=== PATIENT | female | born 1995 | race Caucasian/White ===

== ENCOUNTER → 2016-12-26 12:54 | Outpatient (CLI) | payer MEDICAID ==
[2015-01-30 02:49] VITALS: BMI 34.0
[~2016-12-26 12:54] MED LIST: ACETAMINOPHEN325 MG PO; CLEOCIN PO; COLACE100 MG PO; DEPO-PROVER150 MG/ML IM; DOXYCYCLINE HY100 M2 PO; IBUPROFEN600 MG PO; LEVAQUIN500 MG PO; PERCOCET 10/3251 TA1 PO; PERCOCET 5-3251 TAB PO; ZOLOFT25 MG PO
== END | disposition home or self-care (01) ==
LOC: D.LDO 12:54
DX: O24.419 Gestational diabetes mellitus in pregnancy, unspecified control (principal)

== ENCOUNTER → 2016-12-29 12:02 | Outpatient (CLI) | payer MEDICAID ==
[2015-01-30 02:49] VITALS: BMI 34.0
[2016-12-29 13:23] LABS: BASOPHILS 0.1 % (0-2); EOSINOPHILS 0.7 % (0-7); HEMATOCRIT 36.6 % (36.0-48.0); HEMOGLOBIN 12.3 g/dL (12-16); IMMATURE GRANULOCYTES 1.1 % (0-5); LYMPHOCYTES 19.6 % (15-50); MCH 31.7 pg (26.0-34.0); MCHC 33.6 g/dL (31.0-37.0); MCV 94.3 fL (80.0-100.0); MEAN PLATELET VOLUME 9.8 fL (7.4-10.4); MONOCYTES 12.2 % (2-11); NEUTROPHILS 66.3 % (40-80); PLATELET COUNT 166 10x3/uL (130-400); RBC 3.88 10x6/uL (4.00-5.40); RDW 14.5 % (11.5-14.5); WBC 7.3 10x3/uL (4.8-10.8)
== END | disposition home or self-care (01) ==
LOC: D.LDO 12:02
PROVIDERS: Obstetrics & Gynecology
DX: O24.419 Gestational diabetes mellitus in pregnancy, unspecified control (principal)

== ENCOUNTER → 2016-12-31 12:53 | Outpatient (CLI) | payer MEDICAID ==
[2015-01-30 02:49] VITALS: BMI 34.0
== END | disposition home or self-care (01) ==
LOC: D.LDO 12:53
DX: O24.913 Unspecified diabetes mellitus in pregnancy, third trimester (principal); Z3A.35 35 weeks gestation of pregnancy

== ENCOUNTER → 2017-01-03 10:22 | Outpatient (CLI) | payer MEDICAID ==
[2015-01-30 02:49] VITALS: BMI 34.0
== END | disposition home or self-care (01) ==
LOC: D.LDO 10:22
DX: O24.913 Unspecified diabetes mellitus in pregnancy, third trimester (principal); Z3A.35 35 weeks gestation of pregnancy

== ENCOUNTER → 2017-01-08 11:13 | Outpatient (CLI) | payer MEDICAID ==
[2015-01-30 02:49] VITALS: BMI 34.0
== END | disposition home or self-care (01) ==
LOC: D.LDO 11:13
DX: O26.93 Pregnancy related conditions, unspecified, third trimester (principal); Z3A.36 36 weeks gestation of pregnancy

== ENCOUNTER → 2017-01-11 11:55 | Outpatient (CLI) | payer MEDICAID ==
[2015-01-30 02:49] VITALS: BMI 34.0
== END | disposition home or self-care (01) ==
LOC: D.LDO 11:55
DX: O24.419 Gestational diabetes mellitus in pregnancy, unspecified control (principal); Z3A.36 36 weeks gestation of pregnancy

== ENCOUNTER → 2017-01-15 11:03 | Outpatient (CLI) | payer MEDICAID ==
[2015-01-30 02:49] VITALS: BMI 34.0
== END | disposition home or self-care (01) ==
LOC: D.LDO 11:03
DX: O24.419 Gestational diabetes mellitus in pregnancy, unspecified control (principal); Z3A.37 37 weeks gestation of pregnancy

== ENCOUNTER → 2017-01-18 12:00 | Outpatient (CLI) | payer MEDICAID ==
[2015-01-30 02:49] VITALS: BMI 34.0
== END | disposition home or self-care (01) ==
LOC: D.LDO 12:00
DX: O24.419 Gestational diabetes mellitus in pregnancy, unspecified control (principal); Z3A.37 37 weeks gestation of pregnancy

== ENCOUNTER → 2017-01-22 10:50 | Outpatient (CLI) | payer MEDICAID ==
[2015-01-30 02:49] VITALS: BMI 34.0
== END | disposition home or self-care (01) ==
LOC: D.LDO 10:50
DX: O24.913 Unspecified diabetes mellitus in pregnancy, third trimester (principal); Z3A.38 38 weeks gestation of pregnancy

== ENCOUNTER → 2017-01-25 11:11 | Outpatient (CLI) | payer MEDICAID ==
[2015-01-30 02:49] VITALS: BMI 34.0
== END | disposition home or self-care (01) ==
LOC: D.LDO 11:11
DX: O24.913 Unspecified diabetes mellitus in pregnancy, third trimester (principal); Z3A.38 38 weeks gestation of pregnancy

== ENCOUNTER → 2017-01-28 09:33 | Outpatient (CLI) | payer MEDICAID ==
[2015-01-30 02:49] VITALS: BMI 34.0
== END | disposition home or self-care (01) ==
LOC: D.LDO 09:33
DX: O24.913 Unspecified diabetes mellitus in pregnancy, third trimester (principal); Z3A.39 39 weeks gestation of pregnancy

== ENCOUNTER 2017-01-30 04:52 | Inpatient (IN) | payer MEDICAID ==
[~2017-01-30] VITALS: Ht 162.6 cm; Wt 122.9 kg
--- NOTE | ~2017-01-30 | OP ---
PATIENT NAME: DEB NARAYANAN MEDICAL RECORD: [id number] :94 LOCATION:[id number] ADMISSION DATE:01/30/17 SURGEON: CHARLES WOO MD DATE OF OPERATION: 01/31/2017 PREOPERATIVE DIAGNOSES: 1. Term intrauterine at 39 weeks and 5 days. 2. A2 gestational diabetes. 3. Failed induction of labor. POSTOPERATIVE DIAGNOSES: 1. Term intrauterine at 39 weeks and 5 days. 2. A2 gestational diabetes. 3. Failed induction of labor. PROCEDURE: A primary low transverse section. SURGEON: Charles Woo MD ANESTHESIA: Via spinal. INTRAVENOUS FLUIDS: Per anesthesia record. ESTIMATED BLOOD LOSS: 1000 cc. SPECIMENS: Placenta and cord for gases. FINDINGS: 1. Viable male infant, Apgars 9 at one and 9 at five. 2. Placenta delivered manually intact, 3-vessel cord noted. 3. Grossly normal adnexa bilaterally. 4. A small 1-2 cm posterior lower uterine segment fibroid. SPECIMENS: Placenta and cord for gases. COMPLICATIONS: None apparent. DESCRIPTION OF PROCEDURE: The patient was taken to the operating room where regional anesthesia was achieved without difficulty. The patient was then prepped and draped in normal sterile fashion in the dorsal supine position. SCDs were on and functioning normally. A Johnson catheter had been placed and was draining freely. At this point, a Pfannenstiel skin incision was made, extended downward to the underlying subcutaneous fat to level of the fascia, which was then excised in the midline with a scalpel and excised bilaterally using the Walsh scissors. The superior and inferior aspects of the fascial incision were then grasped with Kelly clamps times 2, tented upward, and sharply dissected from the underlying rectus muscle using the Walsh scissors and the Bovie cautery. Several large rectus veins were cauterized using the Bovie cautery. At this point, the rectus muscles were bluntly in the midline, the pyramidalis muscle bluntly. Several large veins in the peritoneal sac were isolated and cauterized. The peritoneum was entered sharply at the superior aspect of the incision with the Metzenbaum scissors. The peritoneal incision was stretched and then further dissected bilaterally using the Bovie cautery. A bladder blade was then placed into the pelvis. A bladder flap was made by transecting the anterior portion of the lower uterine segment, broad ligament, OPERATIVE REPORT [id number] DEB NARAYANAN which was then carefully dissected downward. The bladder blade was then replaced over the bladder flap and the uterine incision was made. It was extended superiorly and inferiorly using the Pelosi method. At this point, the infant's head was found to be extended. A Kiwi vacuum was then placed on the left lateral occiput to correct the head flexion resulting in delivery of the vertex. At this point, the vacuum was removed. The body was then delivered atraumatically. Infant was bulb suctioned upon delivery. Cord was clamped times 2, cut, and the was handed to the awaiting nursery team. Cord was obtained for gases, placenta was then removed manually intact. A 3-vessel cord was noted. The uterus was exteriorized, cleared of all clots and debris using a sterile sponge. At this point, the lateral aspects of the uterine incision were grasped with ring forceps times 2. The bladder was clearly identified and the uterine incision was repaired with 0 Vicryl in a running locked fashion times 2 with good hemostasis noted. Two small areas of bleeding at suture sites were oversewn with 2-0 Vicryl and good hemostasis was noted. At this point, the posterior cul-de-sac was thoroughly irrigated and the uterus was replaced into the pelvis. Counts were correct times 2. The fascia was then repaired with 0 loop PDS times 1 and the skin repaired with kenyon. The patient tolerated the procedure well, transferred to postanesthesia recovery stable without incident. TRANSINT:[id number] Voice Confirmation ID: [id number] DOCUMENT ID: [id number] CHARLES WOO MD CC: [id number] DICTATION DATE: 01/31/17 1009 FIELD SUPPORT SPECIALIST: 01/31/17 1109 ADM IN [address] [place] [address]
[2017-01-30] MEDS ORDERED: GLYBURIDE5 M1 (05:06)
[2017-01-30 05:14] VITALS: BP 134/80; Ht 162.6 cm; Wt 122.9 kg
[2017-01-30 05:48] LABS: HEMATOCRIT 38.1 % (36.0-48.0); HEMOGLOBIN 12.9 g/dL (12-16); MCH 31.1 pg (26.0-34.0); MCHC 33.9 g/dL (31.0-37.0); MCV 91.8 fL (80.0-100.0); MEAN PLATELET VOLUME 9.3 fL (7.4-10.4); RBC 4.15 10x6/uL (4.00-5.40); RDW 14.7 % (11.5-14.5); WBC 9.1 10x3/uL (4.8-10.8)
[2017-01-30 05:59] LABS: APPEARANCE HAZY (CLEAR); BILIRUBIN NEGATIVE (NEGATIVE); COLOR YELLOW (YELLOW); GLUCOSE 100 mg/dL (NEGATIVE); KETONE NEGATIVE (NEGATIVE); LEUKOCYTE ESTERASE 1+ (NEGATIVE); NITRITE NEGATIVE (NEGATIVE); PROTEIN TRACE mg/dL (NEGATIVE); UROBILINOGEN NORMAL (NORMAL)
[2017-01-30 06:00] LABS: BACTERIA MANY /hpf (NONE SEEN); CALCIUM OXALATE CRYSTALS 0-5 /hpf (NONE SEEN); RED CELLS - URINE 0-5 /hpf (0-5); WHITE CELLS - URINE 0-5 /hpf (0-5)
[2017-01-31] VITALS (10 sets, daily range): BP systolic 109–128; BP diastolic 56–80
[2017-01-31 07:25] LABS: RAPID PLASMA REAGIN Non Reactive (Non Reactive)
--- NOTE | 2017-01-31 08:11 | NUR ---
BABY BORN AT 0759. 8LBS 13OZ, 20CM
--- NOTE | 2017-01-31 08:58 | NUR ---
FUNDUS SLIGHTLY TO THE LEFT, AT UMBILLICUS. FIRM. MODERATE LOCHIA
--- NOTE | 2017-01-31 09:15 | NUR ---
TO ROOM 1273 VIA BED FROM RR. AWAKE AND ALERT. VERBAL RESPONSES APPRO TO QUESTIONS. MOVES UPPER EXTREMITIES AT WILL. PT STATES LEGS ARE STILL NUMB. STATES THAT HAS SOME CRAMPING AND RATES 4 ON SCALE OF 0-10. IV FLUIDS- NEW BAG OF PITOCIN 20 UNITS IN 1000CC NS HUNG AND INFUSING AT 125CC/HR. APICULTURE TEACHER DILAUDID 0.2 MG Q 10 MIN PRN SETUP PER Lashawn HERNANDEZ RN AND PT INSTRUCTED ON USE. FUNDUS UU/FIRM- MOD RUBRA LOCHIA NOTED ON PADS- PADS CHANGED. ICE CAP TO ABD. SMALL SPOTS OF BLOOD NOTED JUST UNDER ABD DRESSING. MARKED WITH PEN. AGOSTO CATH INTACT WITH 60CC URINE IN BAG- YELLOW. SCD'S PLACED.
--- NOTE | 2017-01-31 09:45 | NUR ---
FUNDUS UU/FIRM WITH MASSAGE. SM TO MOD LOCHIA NOTED ON PAD WITH SMALL CLOT X 1. PT CO CRAMPING FEELING. EXPALINED WILL GIVE TORADOL.
--- NOTE | 2017-01-31 09:55 | NUR ---
pedi in room talking with pt and family.
--- NOTE | 2017-01-31 10:08 | NUR ---
fundus uu/firm. small lochia noted on pad. states that pain is 3-4 after toradol. states feels better.
--- NOTE | 2017-01-31 10:30 | NUR ---
TO ROOM, PT IS LYING WITH BED, WITH HOB ELEVATED TO 30 DEGREES. CONTINUES TO PUSH SIGNAL CIRCUIT DESIGNER BUTTON FOR PAIN CONTROL. PT IS SIPPING ON A COCA COLA, DENIES NAUSEA. FUNDUS FIRM, U/U, SMALL RUBRA LOCHIA, NO CLOTS NOTED. PT STATES "I'M STARTING TO FEEL MY TOES TINGLE A LITTLE AND I CAN MOVE BOTH OF MY FEET". PT CONTINUES TO HAVE SCD'S ON. SR UP X2, CALL LIGHT AND PHONE WITHIN REACH. FAMILY CONTINUES TO BE AT BEDSIDE. NURSERY BRINGS BABY TO ROOM IN CRIB.
--- NOTE | 2017-01-31 11:10 | NUR ---
sitting up in bed talking with visitors. sipping on clear liquids. hob lowered. fundus uu/ mod lochia noted on pad- pads changed- perineal care done. positioned to rt tilt and propped with pillows. incentive loren used.
--- NOTE | 2017-01-31 12:41 | NUR ---
clear liquid diet being served. fundus uu. mod lochia noted on pads. almas care done -pads changed. repositioned to supine. encouraged to deep breath and cough. family at bedside. vs done.new ice cap placed.
--- NOTE | 2017-01-31 13:40 | NUR ---
entered room. family at bedside. position changed to lt side- propped with pillows. almas care done- small lochia noted on pad.pt using feather separator at will.
--- NOTE | 2017-01-31 15:20 | NUR ---
TO PT'S ROOM. NURSERY NURSE IN ROOM HELPING PT WITH . PT DENIES NEEDS AT THIS TIME.
--- NOTE | 2017-01-31 16:00 | NUR ---
TO PT'S ROOM, PT IS SITTING UP IN THE BED, WITH HOB AT 45 DEGREES. PT IS REQUESTING TORADOL. SEE EMAR FOR ALL MEDS ADM BY THIS RN. PT STATES "I AM STILL PUSHING MY BUTTON FOR MY PAIN MEDICINE". HOB LOWERED, ABDOMEN PALPATES SOFT, FUNDUS FIRM, U/U. SCANT RUBRA LOCHIA, NO CLOTS. PERIAREA CLEANSED WITH FOAM CLEANSER, NEW OBEY PAD APPLIED. PT STATES "I CAN FINALLY MOVE BOTH MY FEET AND LEGS". PT DENIES OTHER NEEDS AT THIS TIME. PT ENCOURAGED TO USE INCENTIVE SPIROMETER. SR UP X 2, CALL LIGHT AND PHONE WITHIN REACH. FAMILY AT BEDSIDE.
[2017-01-31 16:04] LABS: BASOPHILS 0 % (0-2); EOSINOPHILS 0.2 % (0-7); HEMATOCRIT 34.9 % (36.0-48.0); HEMOGLOBIN 11.7 g/dL (12-16); IMMATURE GRANULOCYTES 0.5 % (0-5); LYMPHOCYTES 13.1 % (15-50); MCH 30.6 pg (26.0-34.0); MCHC 33.5 g/dL (31.0-37.0); MCV 91.4 fL (80.0-100.0); MEAN PLATELET VOLUME 9.6 fL (7.4-10.4); MONOCYTES 9.7 % (2-11); NEUTROPHILS 76.5 % (40-80); RBC 3.82 10x6/uL (4.00-5.40); RDW 14.5 % (11.5-14.5); WBC 9.7 10x3/uL (4.8-10.8)
[2017-01-31 16:05] LABS: PLATELET COUNT 168 10x3/uL (130-400)
--- NOTE | 2017-01-31 17:04 | NUR ---
clear liq diet served.
--- NOTE | 2017-01-31 18:07 | NUR ---
assisted up in bed- encouraged to changed positions. states has had some nausea but is better after position change. nursery in room with infant. baby to breast.
--- NOTE | 2017-01-31 19:27 | NUR ---
RCVD PT FROM Mayra SALAS RN. PT LYING ON BACK, HOB 30 DEGREES. PT AAOX3 WITH C/O PAIN 4/10 AND IS INCISIONAL PAIN. BREATH SOUNDS CLEAR AND UNLABORED X2. HR-RRR, PPP, BOWEL SOUNDS HYPO X4. EDU PT ON NO SOLID FOODS UNTIL ACTIVE BOWEL SOUNDS OR PASSING GAS. PT VERBALIZED UNDERSTANDING. BLI WITH LARGE WHITE BANDAGE WITH SCANT AMOUNT OF SEROSANGUINOUS DRAINAGE NOTED. SCANT LOCHIA RUBRA NOTED TO PERIPAD. PADS CHANGED AT THIS TIME. AGOSTO CATH DRAINING TO GRAVITY WITH 200ML CLEAR YELLOW URINE IN AGOSTO BAG. PUMPS CLEARED AT THIS TIME. SCD'S ON, CONNECTED TO PUMP AND PUMP FUNCTIONING PROPERLY. PT REQUESTS TO GET UP 12 HRS POST OP AND TO MOVE TO TUB ROOM. [facility] PT WILL CALL FOR 12 HR ORDERS AND TAKE OUT AGOSTO. PT VERBALIZED UNDERSTANDING AND IS AGREEABLE. MEAL TRAY REMOVED FROM ROOM PER PT REQUEST. PT DENIES FURTHER NEEDS AT THIS TIME. WILL CONT. POC. BED LOW, WHEELS LOCKED, CL IN REACH, SIDE RAILS UP X2.
--- NOTE | 2017-01-31 19:53 | NUR ---
CALL PLACED TO DR HERNANDEZ FOR [address] HERNANDEZ PT MAY AMB 12 HRS POST OP IF DESIRED. PT MAY SHOWER WHEN READY.
--- NOTE | 2017-01-31 20:28 | NUR ---
AGOSTO CATH REMOVED WITH CATH TIP INTACT. PT ITALIA WELL. 200 ML DARK YELLOW URINE NOTED IN CATH BAG. ADV PT TO CALL WHEN SHE FEELS THE URGE TO VOID. PT VERBALIZED UNDERSTANDING AND DENIES FURTHER NEEDS.
--- NOTE | 2017-01-31 20:58 | NUR ---
PT REQUESTS AND RECEIVES LANOLIN. INFANT UP IN ARMS BONDING. DENIES FURTHER NEEDS AT THIS TIME.
--- NOTE | 2017-01-31 21:44 | NUR ---
ROUNDS MADE. PT WITH Ary BANSAL RN NBN ASSISTING. FAMILY REMAINS AT BEDSIDE. PT DENIES NEEDS AT THIS TIME.
--- NOTE | 2017-01-31 21:58 | NUR ---
PT'S S.O. TO NURSE DESK REQUESTING A NURSE. THIS RN TO BEDSIDE. PT REPORTS FEELING A 'GUSH' OF BLOOD. MOD LOCHIA RUBRA NOTED ON PERIPAD, GOWN, AND PINK PAD. PT REPORTS NEED TO VOID. PT ASSISTED TO SITTING ON SIDE OF BED WITH NO C/O DIZZINESS OR LIGHT HEADEDNESS. PT ASSISTED TO STANDING AND AMB TO BATHROOM WITH MINIMAL ASSISTANCE. SLOW STEADY GAIT NOTED. PT VOIDED 250 ML BLOOD TINTED URINE IN [facility]. PANTIES, CLEAN GOWN, AND PERIPADS PROVIDED. BEDDING CHANGED, CLEAN CHUCKS AND PADS DOWN. PT BACK TO BED AND DENIES FURTHER NEEDS AT THIS TIME.
--- NOTE | 2017-01-31 22:19 | NUR ---
PT LYING IN BED ON BACK, HOB 30 DEGREES AND ATTEMPTING TO BREAST FEED. FAMILY REMAINS AT BEDSIDE. 30MG TORADOL GIVEN SIVP PER ORDERS. SEE EMAR. PT DENIES FURTHER NEEDS. WILL CONT POC.
--- NOTE | 2017-02-01 00:01 | NUR ---
PAIN REASSESSMENT COMPLETE. PT RATES PAIN 2/10 CURRENTLY AND TOLERABLE. DENIES FURTHER NEEDS AT THIS TIME. WILL CONT. POC.
--- NOTE | 2017-02-01 00:28 | NUR ---
INFANT CRYING AND FUSSING, RN TO BEDSIDE, PT STATES THAT SHE DOESN'T KNOW WHAT IS WRONG WITH . STATES THAT SPOUSE JUST CHANGED INFANT'S DIAPER. INFANT LOOSELY SWADDLED. RN PERFORMED DIAPER CHANGE, AND RESWADDLED AND CALMED. TAKEN TO NBN PER PT REQUEST.
--- NOTE | 2017-02-01 00:37 | NUR ---
RN TO BEDSIDE PT UP TO VOID. VOIDED 300 MLS IN HAT. PT AMBULATORY TO ROOM 1257 FOLLOWING VOID.
--- NOTE | 2017-02-01 00:53 | NUR ---
PERCOCET GIVEN PER REQUEST. PAIN 5/10 INCISIONAL BURNING AND STINGING. ICE WATER GIVEN. DENIES ADDITIONAL NEEDS AT THIS TIME. WILL CONT TO MONITOR AND ASSIST PRN.
[2017-02-01 01:16] VITALS: BP 117/70
--- NOTE | 2017-02-01 01:16 | NUR ---
VSS. FUNDUS FIRM U2 WITH SMALL AMT RUBRA LOCHIA NO CLOTS. PT ORIENTED TO ROOM, CL, BEDRAILS, AND LIGHTING IN ROOM. PT VERBALIZED UNDERSTANDING. BED IN LOW POSITION WITH UPPER SIDE RAILS RAISED X2. CL AND PHONE WITHIN REACH.
--- NOTE | 2017-02-01 02:33 | NUR ---
ROUNDS MADE. PT LYING ON BACK RESTING WITH EYES CLOSED, RESP EVEN & UNLABORED. FOB SLEEPING ON BEDSIDE COUCH. PT LEFT UNDISTURBED.
[2017-02-01 04:34] VITALS: BP 132/80
--- NOTE | 2017-02-01 04:34 | NUR ---
ROUNDS MADE. PT RESTING ON BACK, HOB 30 DEGREES. VSS. PT DROWSY, BUT ANSWERS WHEN SPOKEN TO. WILL CONT TO MONITOR.
--- NOTE | 2017-02-01 05:12 | NUR ---
PT RINGS CL. RN TO BEDSIDE. PT REQUESTS PERCOCET 5/325MG FOR PAIN RATED 6/10. ADV PT TO GET UP TO VOID SINCE IT HAS BEEN 5 HOURS. PT VERBALIZED UNDERSTANDING. WILL RETURN WITH MEDICATION.
--- NOTE | 2017-02-01 05:28 | NUR ---
PT ASSISTED UP OFF TOILET AND BACK TO BED. MINIMAL ASSISTANCE NEEDED. PERCOCET 5/325MG X1 TAB GIVEN FOR INCISIONAL PAIN RATED 6/10. Malorie BANSAL RN NBN TO ROOM WITH INFANT IN OPEN CRIB AT THIS TIME. PT DENIES FURTHER NEEDS.
--- NOTE | 2017-02-01 06:13 | NUR ---
PAIN REASSESSMENT COMPLETE. PT RATES PAIN 4/10 AND TOLERABLE. PT HOB 30 DEGREES AND ATTEMPTING TO FEED INFANT BOTTLE AT THIS TIME. PT REPORTS THAT "HE JUST DOESN'T WANT TO EAT. HE JUST WANTS TO SLEEP." ADV PT TO SIT UP MORE AND HOLD THE BABY OUT AWAY FROM HER IN ORDER TO FEED HIM. PT STATES "IT JUST HURTS MY BELLY." PT THEN HOLDING THE MORE HORIZONTAL. ADV PT ON SITTING INFANT UP TO FEED. PT VERBALIZED UNDERSTANDING. NBN INFORMED OF PT'S DIFFICULTY WITH FEEDING. NBN TO ROOM TO ASSIST AT THIS TIME.
[2017-02-01 07:22] LABS: BASOPHILS 0 % (0-2); EOSINOPHILS 0.7 % (0-7); HEMOGLOBIN 11.4 g/dL (12-16); IMMATURE GRANULOCYTES 0.7 % (0-5); LYMPHOCYTES 11.4 % (15-50); MCH 30.6 pg (26.0-34.0); MCHC 33.5 g/dL (31.0-37.0); MCV 91.4 fL (80.0-100.0); MEAN PLATELET VOLUME 9.4 fL (7.4-10.4); NEUTROPHILS 76.2 % (40-80); PLATELET COUNT 159 10x3/uL (130-400); RBC 3.72 10x6/uL (4.00-5.40); RDW 14.8 % (11.5-14.5); WBC 8.7 10x3/uL (4.8-10.8)
--- NOTE | 2017-02-01 08:00 | NUR ---
ASSUME CARE OF THIS PATIENT. SITTING IN LOW FOWLERS POSITION. IN CRIB, FOB SLEEPING ON COUCH. SHIFT ASSESSMENT COMPLETED. FSBS COMPLETED RESULTED AT 88. DISCUSSED PLAN FOR THE DAY TO INCLUDE OOB, AMBULATION, SHOWER. CURRENTLY BREAST AND BOTTLE FEEDING INFANT. DISCUSSED BOTH WITH PT. ALSO INFORMED PT THAT IS RH POSITIVE STATES "OH, SO I WILL GET THE RHOGAM". INSTRUCTED ON INCISION CARE AND USE OF PERIPAD TO KEEP AREA DRY. INSTRUCTED TO CHANGE FREQUENTLY. DISCUSSED PAIN MANAGEMENT AND RELIEF MEASURES FOR GAS PAIN/CRAMPING. U/3 FIRM RUBRA SCANT. DENIES NEED TO VOID. ENCOURAGED TO TRY TO EAT SMALL AMOUNTS OF BREAKFAST. TO CALL WHEN READY TO AMBULATE AND TAKE SHOWER. CALL LIGHT IN REACH AND SIDE RAILS UP X 2. VERBALIZED UNDERSTANDING.
[2017-02-01 08:02] VITALS: BP 120/76
--- NOTE | 2017-02-01 09:56 | NUR ---
REQUESTED MOTRIN FOR 5/10 CRAMPING. MOTRIN 600 MG GIVEN PO. INSTRUCTED TO LET RN KNOW IF IT DOES NOT HELP. VERBALIZED UNDERSTANDING. FACILITY MANAGER HISTOLOGY IN ROOM ASSISTING WITH . PT SAYS SHE HAS BEEN UP TO THE BATHROOM AND VOIDED WITHOUT DIFFICULTY. SIDE RAILS UP X 2, CALL LIGHT IN REACH.
--- NOTE | 2017-02-01 10:35 | NUR ---
Lupe Simpsonr 02/01/17 LE@ 9:00 S: Patient states is going fine; will get to the breast and sleep. O: Congratulated on delivery, takes time and patience in the beginning. Explained how to hold for feeding, make sure is turned tummy to tummy, nose opposite of nipple, gently support head, and allow to self-latch. In the beginning takes time and patience in the beginning. should feed on demand when showing feeding cues, explained feeding cues. Explained and provided handouts on positions, growth spurs, how to hand express, how to wake a sleeping baby, engorgement, what to expect the first week, feeding cues and explained breastmilk composition. The more is placed to the breast, this will help with establishing your milk supply, supply and demand, what baby takes out, and your body will make more of. Patient states baby should eat again soon. Placed skin to skin with mom to promote . Encouraged to latch infant to the breast every 2-3 hours for feeding, or sooner if needed. Ask for help as needed. Offered to make WIC appointment, client states she will do so a later time. Asked if she had any questions, concerns, or needs, client declined. A: Patient states she is in pain from cut. P: Continue to support exclusively . Ang Simmons, CLC
--- NOTE | 2017-02-01 10:45 | NUR ---
CONFIRMED WITH PATIENT THAT SHE DOES NOT WANT NORCO FOR PAIN CONTROL STAYS IT MAKES ME SICK TO MY STOMACH. DESIRES THE PERCOCET. ALSO PT REQUESTS SALINE LOCK TO BE "TAKEN OUT. IT'S BOTHERING ME".
--- NOTE | 2017-02-01 11:00 | NUR ---
PERCOCET 5 MG GIVEN PO FOR RELIEF OF ABDOMINAL CRAMPING NOT RELIEVED BY MOTRIN. SALINE LOCK DC'D WITH TIP INTACT. TO NURSERY PER REQUEST OF PT. SIDE RAILS UP X 2 CALL LIGHT IN REACH.
--- NOTE | 2017-02-01 13:15 | NUR ---
VISITORS IN ROOM WITH . PT SITTING HIGH FOWLERS. FEELING DROWSY. DESIRES TO WAIT ON AMBULATION. SIDE RAILS UP, CALL LIGHT IN REACH.
--- NOTE | 2017-02-01 14:31 | NUR ---
AROUSED EASILY FROM SLEEP FOR 2 HR PP FSBS. RESULTS 120. REPORTED TO DR HERNANDEZ. PER NO ADDITIONAL TESTING IS NEEDED. DESIRES TO CONTINUE TO REST AT THIS TIME. FAMILY IN ROOM.
--- NOTE | 2017-02-01 16:00 | NUR ---
SITTING UP IN CHAIR WITH IN ARMS. PLANS TO SHOWER SOON. NO REQUESTS AT THIS TIME. FAMILY IN ROOM. TO CALL IF ANYTHING IS NEEDED.
--- NOTE | 2017-02-01 17:00 | NUR ---
SHOWER WAS COMPLETED. SITTING IN CHAIR. NO REQUESTS AT THIS TIME. FAMILY IN ROOM SITTING ON BED. WILL CHANGE LINEN WHEN PT READY TO RETURN TO BED.
--- NOTE | 2017-02-01 17:46 | NUR ---
REQUESTED PAIN MEDICATION FOR 6/10 ABDOMINAL CRAMPING. LAYING IN BED AT THIS TIME. PERCOCET 5 MG GIVEN PO FOR RELIEF. ASSISSTED OUT OF BED TO AMBULATE BEFORE MEDICATION CAUSES DROWSINESS. OOB SLOWLY BUT AMBULATED WELL AROUND SOLOMON WITHOUT DIFFICULTY. RETURNED TO ROOM AFTER AMBULATING AND CURRENTLY SITTING IN CHAIR. LINENS WERE CHANGED AT THIS TIME.
--- NOTE | 2017-02-01 18:30 | NUR ---
LAYING IN BED HOLDING . SAYS SHE IS FEELING BETTER. 3/10 ON PAIN SCALE. SIDE RAILS UP X 2, CALL LIGHT IN REACH. REMINDED PATIENT TO AMBULATE AGAIN THIS EVENING BEFORE BED. VERBALIZED UNDERSTANDING. TO CALL IF ANY REQUESTS.
--- NOTE | 2017-02-01 19:21 | NUR ---
RCVD PT FROM Randell FOX RN. PT LYING IN BED WITH HOB 45 DEGREES ATTEMPTING TO BREASTFEED AT THIS TIME. WILL RETURN TO COMPLETE ASSESSMENT WHEN PT IS FINISHED. PT DENIES PAIN OR NEEDS CURRENTLY.
[2017-02-01 20:23] VITALS: BP 134/89
--- NOTE | 2017-02-01 20:23 | NUR ---
PT FINISHED AT THIS TIME. PT UP TO BATHROOM. STEADY GAIT NOTED. PT VOIDS LARGE AMOUNT IN TOILET. NEW ROLL OF TOILET PAPER PROVIDED PER PT REQUEST. PT AMB BACK TO BED WITHOUT DIFFICULTY FOR ABRASIVE SAWYER. HR-RRR, BREATH SOUNDS CLEAR & UNLABORED X2, PPP. BLI WITH LILY C/D/I WITH PERIPAD COVERING. SCANT SEROSANGUINOUS FLUID NOTED TO PERIPAD. PAD CHANGED AT THIS TIME. SCANT LOCHIA RUBRA NOT ON PERIPAD @ PERINEUM. FUNDUS FIRM, ML, U/U PT REPORTS NO CLOTS WHEN VOIDING. VSS. PT INQUIRES WHEN NEXT PAIN MEDICATION DUE. ADV PT THAT IT WAS CLOSE TO 6 PM WHEN SHE HAD LAST DOSE OF PERCOCET AND IT'S EVERY 4 HRS NEEDED. PT VERBALIZED UNDERSTANDING AND REQUESTS NEXT DOSE BE BROUGHT WHEN AVAILABLE. WILL PLAN TO DO SO. PT DENIES FURTHER NEEDS AT THIS TIME. FAMILY REMAINS AT BEDSIDE VISITING. BED LOW, WHEELS LOCKED, CL IN REACH, SIDE RAILS UP X2.
--- NOTE | 2017-02-01 22:27 | NUR ---
PAIN REASSESSMENT COMPLETE. PT RATES PAIN 4/10 AND TOLERABLE. Ary KENDALL, DRYING TUMBLER OPERATOR TO ROOM TO TAKE INFANT TO NBN. PT UP OUT OF BED PER SELF TO AMB IN VARGAS. PT AMB DOWN TO DOUBLE DOOR ON UNIT AND BACK TO ROOM WITHOUT DIFFICULTY. PT TO BATHROOM TO VOID AND REQUESTS MOTRIN. WILL RETURN WITH SAME.
--- NOTE | 2017-02-01 22:30 | NUR ---
MOTRIN 600MG X1 TAB GIVEN FOR PAIN RATED 5/10 IN ABD DESCRIBED CRAMPING AND INCISIONAL PAIN. PT DENIES FURTHER NEEDS AT THIS TIME. PT PLANS TO REST WHILE IS IN NSY. WILL CONT. TO MONITOR.
--- NOTE | 2017-02-01 23:06 | NUR ---
PAIN REASSESSMENT COMPLETE. PT RATES PAIN 4/10 AND TOLERABLE. NEED FOR RHOGAM DISCUSSED WITH PT. PT VERBALIZED UNDERSTANDING. PT WANTS TO HAVE IT DONE "LATER." PT DENIES NEEDS OR FURTHER C/O AT THIS TIME. WILL CONT. TO MONITOR.
--- NOTE | 2017-02-02 01:30 | NUR ---
pt sitting up in bed . denies pain or needs at this time. will call out for vs assessment and rhogam injection when finished.
[2017-02-02 02:04] VITALS: BP 126/78
--- NOTE | 2017-02-02 02:04 | NUR ---
RHOGAM GIVEN IN RT VENTROGLUTEAL PER ORDERS. SEE EMAR. PERCOCET 5/325MG X1 TAB GIVEN PER PT REQUEST. PT DENIES FURTHER NEEDS AT THIS TIME.
--- NOTE | 2017-02-02 02:47 | NUR ---
PAIN REASSESSMENT COMPLETE. PT RATES PAIN 3/10 AT THIS TIME. INFANT UP IN ARMS BONDING. PT REPORTS FEELING TIRED AND DESIRES TO GO TO SLEEP. PT REQUESTS TO GO TO NBN. INFANT TRANSPORTED VIA OPEN CRIB TO NBN PER THIS RN.
--- NOTE | 2017-02-02 04:29 | NUR ---
PT RESTING EYES CLOSED, RESP EVEN & UNLABORED. FOB SLEEPING ON BEDSIDE COUCH. PT LEFT UNDISTURBED AT THIS TIME.
[2017-02-02 05:02] VITALS: BP 132/85
--- NOTE | 2017-02-02 05:02 | NUR ---
NBN TO ROOM WITH INFANT, PT ASKS THAT INFANT REMAIN IN NBN AND FED BOTTLE. TRANSPORTED BACK TO ROOM VIA OPEN CRIB PER Ary KENDALL LPN. VS ASSESSED AT THIS TIME. PT DENIES PAIN OR NEEDS.
--- NOTE | 2017-02-02 06:05 | NUR ---
PT RESTING ON BACK SNORING LOUDLY. EYES CLOSED. PT LEFT UNDISTURBED.
[2017-02-02 07:30] VITALS: BP 119/76
--- NOTE | 2017-02-02 07:30 | NUR ---
ASSUME CARE OF THIS PATIENT. SHIFT ASSESSMENT COMPLETED. INFANT IN ROOM IN CRIB AND FOB SLEEPING ON COUCH. / CRAMPING BUT DECLINES PAIN MEDICATION STATES "I WILL LET YOU KNOW IF I NEED ANYTHING." HAS BEEN BREAST AND BOTTLEFEEDING. ASKED ABOUT GOING HOME TODAY. NO REQUESTS. REG DIET AT BEDSIDE. PLANS TO GET OOB TO BR BEFORE EATING. CALL LIGHT IN REACH. TO CALL IF ANYTHING IS NEEDED. VERBALIZED UNDERSTANDING.
--- NOTE | 2017-02-02 09:20 | NUR ---
SITTING UP IN BED . FOB IN CHAIR AT BEDSIDE. NO REQUESTS.
--- NOTE | 2017-02-02 10:15 | NUR ---
AMBULATED FROM BATHROOM. REQUESTED PAIN MED FOR 6/10 CRAMPING. PERCOCET 5 MG GIVEN PO FOR RELIEF. ASSISTED WITH CHANGE OF PAD OVER INCISION. PLANS TO AMBULATE AROUND PP SOLOMON BEFORE SHE FEEL DROWSY FROM PERCOCET. VERBAL AND WRITTEN INFORMATION GIVEN ON TDAP VACCINE. CURRENTLY CONSIDERING.
--- NOTE | 2017-02-02 10:32 | NUR ---
C/O CRAMP BEHIND LEFT KNEE. ONSET TODAY STATES "I THINK IT WAS HOW I WAS SLEEPING". FEELS BETTER WHEN WALKING. SKIN WARM AND DRY BILATERALLY, TRACE EDEMA BILATERALLY, NEG HOMANS BILATERALLY. AMBULATED AROUND [place] AND BACK TO ROOM SAYS THAT WALKING MADE IF FEEL A LITTLE BETTER. RETURNED TO BED. SIDE RAILS UP X 2, CALL LIGHT IN REACH. FOB IN ROOM WITH INFANT IN ARMS.
--- NOTE | 2017-02-02 11:00 | NUR ---
CALLED TO ROOM BY PT. SAYS SHE FEELS LIKE CRAMPING PAIN IS GETTING WORSE BEHIND RIGHT KNEE. DR HERNANDEZ WAS NOTIFIED. NEW ORDERS RECEIVED. RADIOLOGY NOTIFIED OF ORDER FOR ROSALINDA VENOUS DOPPLER DOPPLER.
--- NOTE | 2017-02-02 11:06 | NUR ---
TO ROOM TO LET PT KNOW THE PLAN. WALKING AROUND ROOM AT THIS TIME STATES "IT FEELS BETTER WHEN I WALK".
--- NOTE | 2017-02-02 11:19 | NUR ---
WAD IMPREGNATOR HERE. PT SAYS ABDOMINAL CRAMPING IS NOW 3. SAYS LEG PAIN-CRAMP IS 1-2 WHEN WALKING AND ABOUT A 4 WHEN SITTING OR IN BED.
--- NOTE | 2017-02-02 11:40 | NUR ---
DR HERNANDEZ VISITED. DOPPLER US NEGATIVE PER TECH- DR HERNANDEZ NOTIFIED.
--- NOTE | 2017-02-02 12:13 | NUR ---
SITTING UP IN BED EATING LUNCH. DESIRES TO WAIT ON TDAP VACCINATION. STATES "I CAN GET IT WHEN I GET MY WIC". DC ORDERS RECEIVED FROM DR HERNANDEZ.
--- NOTE | 2017-02-02 14:36 | NUR ---
REQUESTED MOTRIN FOR 5-6/10 ABD CRAMPING. MOTRIN 600 MG GIVEN PO. DC INSTRUCTIONS STARTED TO INCLUDE /POST-OP CARE, CARE OF INCISION, S&S INFECTION, PP DEPRESSION, MEDICATION ADMINISTRATION, AND F/U APPOINTMENT. VERBALIZED UNDERSTANDING. GETTING READY TO GET UP TO SHOWER. TO CALL WHEN FINISHED AND READY TO GO HOME.
--- NOTE | 2017-02-02 16:38 | NUR ---
discharge instructions- prepared per yordy cox rn given to pt with explaination- pt denies questions. see acknowledgement forms. pt refuses t-dap vaccine. prescriptions x2 given along with drug data info. pt denies questions.
--- NOTE | 2017-02-02 16:40 | NUR ---
pfw discharge inst given - post op discharge inst given. pt health summary given. pt denies questions.
--- NOTE | 2017-02-02 16:51 | NUR ---
discharged home with and family. to auto via w/c.
== END 2017-02-02 16:45 | disposition home or self-care (01) | DRG 766 ==
LOC: D.LD 04:52
PROVIDERS: ADMIT Obstetrics & Gynecology
PROC: 3E033VJ Introduction of Other Hormone into Peripheral Vein, Percutaneous Approach (ICD-10-PCS; 2017-01-31)
PROC: 10D00Z1 Extraction of Products of Conception, Low, Open Approach (ICD-10-PCS; principal; 2017-01-31 07:30)
DX: O24.429 Gestational diabetes mellitus in childbirth, unspecified control (principal); Z3A.39 39 weeks gestation of pregnancy; Z37.0 Single live birth; O61.0 Failed medical induction of labor; O99.824 Streptococcus B carrier state complicating childbirth; O26.893 Other specified pregnancy related conditions, third trimester; Z67.91 Unspecified blood type, Rh negative

== ENCOUNTER → 2018-10-24 12:35 | Outpatient (CLI) | payer MEDICAID ==
[~2018-10-24 12:35] MED LIST changes: +BUSPAR5 MG PO; +GLYBURIDE5 M1; +PERCOCET 10-321 EAC1 PO
[2018-10-24 13:55] LABS: APPEARANCE HAZY (CLEAR); BACTERIA MANY /hpf (NONE SEEN); BILIRUBIN NEGATIVE (NEGATIVE); COLOR YELLOW (YELLOW); EPITHELIAL CELLS 0-5 /hpf (0-5); GLUCOSE 100 mg/dL (NEGATIVE); KETONE NEGATIVE (NEGATIVE); NITRITE NEGATIVE (NEGATIVE); PROTEIN NEGATIVE (NEGATIVE); UROBILINOGEN NORMAL (NORMAL)
[2018-10-24 13:56] LABS: MUCUS <1+ /lpf (NONE SEEN); RED CELLS - URINE OCC /hpf (0-5); WHITE CELLS - URINE OCC /hpf (0-5)
[2018-10-24 14:28] LABS: BASOPHILS 0.2 % (0-2); EOSINOPHILS 2.5 % (0-7); HEMOGLOBIN 12.4 g/dL (12-16); IMMATURE GRANULOCYTES 1.1 % (0-5); LYMPHOCYTES 22.1 % (15-50); MCH 31.7 pg (26.0-34.0); MCHC 34.4 g/dL (31.0-37.0); MCV 92.1 fL (80.0-100.0); MEAN PLATELET VOLUME 8.9 fL (7.4-10.4); MONOCYTES 9.2 % (2-11); NEUTROPHILS 64.9 % (40-80); RBC 3.91 10x6/uL (4.00-5.40); RDW 13.9 % (11.5-14.5); WBC 6.5 10x3/uL (4.8-10.8)
[2018-10-24 14:41] LABS: PLATELET COUNT 209 10x3/uL (130-400)
== END | disposition home or self-care (01) ==
LOC: D.LDO 12:35
PROVIDERS: Obstetrics & Gynecology
DX: O26.892 Other specified pregnancy related conditions, second trimester (principal); Z3A.22 22 weeks gestation of pregnancy; R10.2 Pelvic and perineal pain

== ENCOUNTER 2018-11-11 16:26 | Outpatient (CLI) | payer MEDICAID ==
[2017-01-30 05:14] VITALS: BMI 46.6
[~2018-11-11 16:26] MED LIST changes: -BUSPAR5 MG PO; -PERCOCET 10-321 EAC1 PO
[2018-11-11 17:52] LABS: BASOPHILS 0.1 % (0-2); EOSINOPHILS 1.4 % (0-7); HEMATOCRIT 35.6 % (36.0-48.0); HEMOGLOBIN 12.1 g/dL (12-16); IMMATURE GRANULOCYTES 1.6 % (0-5); LYMPHOCYTES 14.9 % (15-50); MCH 31.2 pg (26.0-34.0); MCV 91.8 fL (80.0-100.0); MEAN PLATELET VOLUME 9.1 fL (7.4-10.4); MONOCYTES 11.1 % (2-11); NEUTROPHILS 70.9 % (40-80); PLATELET COUNT 204 10x3/uL (130-400); RBC 3.88 10x6/uL (4.00-5.40); RDW 13.7 % (11.5-14.5)
[2018-11-11 18:02] LABS: ALBUMIN 2.9 g/dL (3.4-5.0); ALKALINE PHOSPHATASE 39 U/L (46-116); ALT (SGPT) 17 U/L (10-68); BILIRUBIN - TOTAL 0.18 mg/dL (0.2-1.3); CALC OSMOLALITY 276 mosm/kg (275-300); CARBON DIOXIDE 23.6 mmol/L (21.0-32.0); CHLORIDE - SERUM 106 mmol/L (98-107); CREATININE - SERUM 0.5 mg/dL (0.6-1.3); GLUCOSE 78 mg/dL (74-106); POTASSIUM - SERUM 3.7 mmol/L (3.5-5.1); PROTEIN - SERUM 6.8 g/dL (6.4-8.2); SODIUM 140 mmol/L (136-145); UREA NITROGEN 9 mg/dL (7-18); eGFR NON AFRICAN AMERICAN > 90 mL/min (90-120)
[2018-11-11 18:14] LABS: BILIRUBIN - INDIRECT 0.16 mg/dL (0.00-1.00); URIC ACID 3.2 mg/dL (2.6-7.2)
[2018-11-11 18:23] LABS: BILIRUBIN - DIRECT 0.02 mg/dL (0.00-0.30)
[2018-11-12 21:29] LABS: PROTEIN - URINE 0.8 mg/dL (0.0-11.9)
== END 2018-11-11 19:38 ==
LOC: D.LDO 16:26
PROVIDERS: ATTEND Obstetrics & Gynecology
DX: O13.2 Gestational [pregnancy-induced] hypertension without significant proteinuria, second trimester (principal); Z3A.24 24 weeks gestation of pregnancy

== ENCOUNTER → 2018-11-14 19:37 | Outpatient (CLI) | payer MEDICAID ==
[2017-01-30 05:14] VITALS: BMI 46.6
== END | disposition home or self-care (01) ==
LOC: D.LDO 19:37
PROVIDERS: ATTEND Obstetrics & Gynecology
DX: O16.2 Unspecified maternal hypertension, second trimester (principal); Z3A.25 25 weeks gestation of pregnancy

== ENCOUNTER → 2018-12-23 11:49 | Outpatient (CLI) | payer MEDICAID ==
[2017-01-30 05:14] VITALS: BMI 46.6
[~2018-12-23 11:49] MED LIST changes: +BUSPAR5 MG PO
[2018-12-23 12:56] LABS: BASOPHILS 0.2 % (0-2); EOSINOPHILS 1.2 % (0-7); HEMATOCRIT 33.2 % (36.0-48.0); HEMOGLOBIN 11.5 g/dL (12-16); IMMATURE GRANULOCYTES 1.7 % (0-5); LYMPHOCYTES 18.9 % (15-50); MCH 31.4 pg (26.0-34.0); MCHC 34.6 g/dL (31.0-37.0); MCV 90.7 fL (80.0-100.0); MEAN PLATELET VOLUME 9.2 fL (7.4-10.4); MONOCYTES 10.7 % (2-11); NEUTROPHILS 67.3 % (40-80); PLATELET COUNT 187 10x3/uL (130-400); RBC 3.66 10x6/uL (4.00-5.40); RDW 13.9 % (11.5-14.5); WBC 5.8 10x3/uL (4.8-10.8)
[2018-12-23 13:09] LABS: ALBUMIN 2.8 g/dL (3.4-5.0); ALKALINE PHOSPHATASE 63 U/L (46-116); ALT (SGPT) 21 U/L (10-68); BILIRUBIN - DIRECT 0.08 mg/dL (0.00-0.30); BILIRUBIN - INDIRECT 0.17 mg/dL (0.00-1.00); BILIRUBIN - TOTAL 0.25 mg/dL (0.2-1.3); CALC OSMOLALITY 274 mosm/kg (275-300); CALCIUM 8.9 mg/dL (8.5-10.1); CARBON DIOXIDE 23.5 mmol/L (21.0-32.0); CHLORIDE - SERUM 106 mmol/L (98-107); CREATININE - SERUM 0.5 mg/dL (0.6-1.3); POTASSIUM - SERUM 3.5 mmol/L (3.5-5.1); PROTEIN - SERUM 6.7 g/dL (6.4-8.2); SODIUM 140 mmol/L (136-145); UREA NITROGEN 7 mg/dL (7-18); URIC ACID 4.2 mg/dL (2.6-7.2); eGFR NON AFRICAN AMERICAN > 90 mL/min (90-120)
[2018-12-23 13:10] LABS: GLUCOSE 70 mg/dL (74-106)
== END | disposition home or self-care (01) ==
LOC: D.LDO 11:49
PROVIDERS: Obstetrics & Gynecology; ATTEND Obstetrics & Gynecology
DX: O24.913 Unspecified diabetes mellitus in pregnancy, third trimester (principal); Z3A.30 30 weeks gestation of pregnancy

== ENCOUNTER → 2018-12-26 12:05 | Outpatient (CLI) | payer MEDICAID ==
[2017-01-30 05:14] VITALS: BMI 46.6
== END | disposition home or self-care (01) ==
LOC: D.LDO 12:05
PROVIDERS: ATTEND Obstetrics & Gynecology
DX: O26.899 Other specified pregnancy related conditions, unspecified trimester (principal)

== ENCOUNTER → 2018-12-30 11:09 | Outpatient (CLI) | payer MEDICAID ==
[2017-01-30 05:14] VITALS: BMI 46.6
[2018-12-30 12:41] LABS: BASOPHILS 0.2 % (0-2); EOSINOPHILS 1.4 % (0-7); HEMATOCRIT 34.5 % (36.0-48.0); HEMOGLOBIN 11.6 g/dL (12-16); IMMATURE GRANULOCYTES 1.1 % (0-5); LYMPHOCYTES 22.4 % (15-50); MCH 31.3 pg (26.0-34.0); MCHC 33.6 g/dL (31.0-37.0); MEAN PLATELET VOLUME 9.2 fL (7.4-10.4); MONOCYTES 7.8 % (2-11); NEUTROPHILS 67.1 % (40-80); PLATELET COUNT 161 10x3/uL (130-400); RBC 3.71 10x6/uL (4.00-5.40); RDW 14.6 % (11.5-14.5); WBC 5.7 10x3/uL (4.8-10.8)
[2018-12-30 12:50] LABS: ALBUMIN 2.9 g/dL (3.4-5.0); ALKALINE PHOSPHATASE 68 U/L (46-116); ALT (SGPT) 30 U/L (10-68); BILIRUBIN - DIRECT 0.06 mg/dL (0.00-0.30); BILIRUBIN - INDIRECT 0.22 mg/dL (0.00-1.00); BILIRUBIN - TOTAL 0.28 mg/dL (0.2-1.3); CALC OSMOLALITY 275 mosm/kg (275-300); CALCIUM 8.5 mg/dL (8.5-10.1); CARBON DIOXIDE 20.8 mmol/L (21.0-32.0); CHLORIDE - SERUM 106 mmol/L (98-107); CREATININE - SERUM 0.5 mg/dL (0.6-1.3); GLUCOSE 76 mg/dL (74-106); POTASSIUM - SERUM 3.5 mmol/L (3.5-5.1); PROTEIN - SERUM 6.5 g/dL (6.4-8.2); SODIUM 140 mmol/L (136-145); UREA NITROGEN 6 mg/dL (7-18); URIC ACID 4.1 mg/dL (2.6-7.2); eGFR NON AFRICAN AMERICAN > 90 mL/min (90-120)
== END | disposition home or self-care (01) ==
LOC: D.LDO 11:09
PROVIDERS: ATTEND Obstetrics & Gynecology
DX: O24.419 Gestational diabetes mellitus in pregnancy, unspecified control (principal); O16.3 Unspecified maternal hypertension, third trimester; Z3A.31 31 weeks gestation of pregnancy

== ENCOUNTER → 2019-01-02 18:12 | Outpatient (CLI) | payer MEDICAID ==
[2017-01-30 05:14] VITALS: BMI 46.6
== END | disposition home or self-care (01) ==
LOC: D.LDO 18:12
PROVIDERS: ATTEND Obstetrics & Gynecology
DX: O24.419 Gestational diabetes mellitus in pregnancy, unspecified control (principal); Z3A.32 32 weeks gestation of pregnancy

== ENCOUNTER → 2019-01-07 10:16 | Outpatient (CLI) | payer MEDICAID ==
[2017-01-30 05:14] VITALS: BMI 46.6
[2019-01-07 12:16] LABS: BASOPHILS 0.1 % (0-2); HEMATOCRIT 33.8 % (36.0-48.0); HEMOGLOBIN 11.6 g/dL (12-16); IMMATURE GRANULOCYTES 0.6 % (0-5); MCH 31.4 pg (26.0-34.0); MCHC 34.3 g/dL (31.0-37.0); MCV 91.6 fL (80.0-100.0); MONOCYTES 10.6 % (2-11); NEUTROPHILS 71.7 % (40-80); PLATELET COUNT 181 10x3/uL (130-400); RBC 3.69 10x6/uL (4.00-5.40); RDW 14.5 % (11.5-14.5); WBC 7.2 10x3/uL (4.8-10.8)
[2019-01-07 12:30] LABS: ALBUMIN 2.8 g/dL (3.4-5.0); ALKALINE PHOSPHATASE 68 U/L (46-116); ALT (SGPT) 19 U/L (10-68); BILIRUBIN - DIRECT 0.05 mg/dL (0.00-0.30); BILIRUBIN - INDIRECT 0.17 mg/dL (0.00-1.00); BILIRUBIN - TOTAL 0.22 mg/dL (0.2-1.3); CALC OSMOLALITY 274 mosm/kg (275-300); CALCIUM 8.3 mg/dL (8.5-10.1); CARBON DIOXIDE 22.8 mmol/L (21.0-32.0); CHLORIDE - SERUM 106 mmol/L (98-107); CREATININE - SERUM 0.4 mg/dL (0.6-1.3); GLUCOSE 77 mg/dL (74-106); POTASSIUM - SERUM 3.5 mmol/L (3.5-5.1); PROTEIN - SERUM 6.7 g/dL (6.4-8.2); SODIUM 139 mmol/L (136-145); UREA NITROGEN 6 mg/dL (7-18); URIC ACID 4.2 mg/dL (2.6-7.2); eGFR NON AFRICAN AMERICAN > 90 mL/min (90-120)
== END | disposition home or self-care (01) ==
LOC: D.LDO 10:16
PROVIDERS: ATTEND Obstetrics & Gynecology
DX: O26.893 Other specified pregnancy related conditions, third trimester (principal); Z3A.32 32 weeks gestation of pregnancy

== ENCOUNTER → 2019-01-10 10:34 | Outpatient (CLI) | payer MEDICAID ==
[2017-01-30 05:14] VITALS: BMI 46.6
== END | disposition home or self-care (01) ==
LOC: D.LDO 10:34
PROVIDERS: ATTEND Obstetrics & Gynecology
DX: O13.3 Gestational [pregnancy-induced] hypertension without significant proteinuria, third trimester (principal); O24.913 Unspecified diabetes mellitus in pregnancy, third trimester; Z3A.33 33 weeks gestation of pregnancy

== ENCOUNTER → 2019-01-15 09:43 | Outpatient (CLI) | payer MEDICAID ==
[2017-01-30 05:14] VITALS: BMI 46.6
[2019-01-15 10:14] LABS: BASOPHILS 0.2 % (0-2); HEMATOCRIT 34.2 % (36.0-48.0); HEMOGLOBIN 11.8 g/dL (12-16); IMMATURE GRANULOCYTES 0.8 % (0-5); LYMPHOCYTES 18.4 % (15-50); MCH 31.1 pg (26.0-34.0); MCHC 34.5 g/dL (31.0-37.0); MCV 90.2 fL (80.0-100.0); MEAN PLATELET VOLUME 9.1 fL (7.4-10.4); MONOCYTES 10.4 % (2-11); NEUTROPHILS 68.2 % (40-80); PLATELET COUNT 162 10x3/uL (130-400); RBC 3.79 10x6/uL (4.00-5.40); RDW 14.4 % (11.5-14.5); WBC 5.9 10x3/uL (4.8-10.8)
[2019-01-15 10:18] LABS: ALBUMIN 2.7 g/dL (3.4-5.0); ALKALINE PHOSPHATASE 79 U/L (46-116); ALT (SGPT) 12 U/L (10-68); BILIRUBIN - DIRECT 0.05 mg/dL (0.00-0.30); BILIRUBIN - TOTAL 0.25 mg/dL (0.2-1.3); CALC OSMOLALITY 272 mosm/kg (275-300); CALCIUM 8.3 mg/dL (8.5-10.1); CARBON DIOXIDE 23.6 mmol/L (21.0-32.0); CHLORIDE - SERUM 105 mmol/L (98-107); CREATININE - SERUM 0.5 mg/dL (0.6-1.3); GLUCOSE 85 mg/dL (74-106); POTASSIUM - SERUM 3.6 mmol/L (3.5-5.1); PROTEIN - SERUM 6.8 g/dL (6.4-8.2); SODIUM 138 mmol/L (136-145); UREA NITROGEN 7 mg/dL (7-18); URIC ACID 3.9 mg/dL (2.6-7.2); eGFR NON AFRICAN AMERICAN > 90 mL/min (90-120)
[2019-01-20 12:42] LABS: PROTEIN - URINE 4.4 mg/dL (0.0-11.9)
== END | disposition home or self-care (01) ==
LOC: D.LDO 09:43
PROVIDERS: ATTEND Obstetrics & Gynecology
DX: O24.419 Gestational diabetes mellitus in pregnancy, unspecified control (principal); O16.3 Unspecified maternal hypertension, third trimester; Z3A.33 33 weeks gestation of pregnancy

== ENCOUNTER → 2019-01-21 14:07 | Outpatient (CLI) | payer MEDICAID ==
[2017-01-30 05:14] VITALS: BMI 46.6
[~2019-01-21 14:07] MED LIST changes: +PERCOCET 10-321 EAC1 PO
[2019-01-21 15:13] LABS: BASOPHILS 0 % (0-2); HEMATOCRIT 34.6 % (36.0-48.0); HEMOGLOBIN 11.7 g/dL (12-16); IMMATURE GRANULOCYTES 0.7 % (0-5); LYMPHOCYTES 19.1 % (15-50); MCH 31.4 pg (26.0-34.0); MCHC 33.8 g/dL (31.0-37.0); MCV 92.8 fL (80.0-100.0); MEAN PLATELET VOLUME 9.2 fL (7.4-10.4); MONOCYTES 12.3 % (2-11); NEUTROPHILS 65.9 % (40-80); PLATELET COUNT 169 10x3/uL (130-400); RBC 3.73 10x6/uL (4.00-5.40); RDW 14.4 % (11.5-14.5); WBC 5.6 10x3/uL (4.8-10.8)
[2019-01-21 15:27] LABS: ALBUMIN 2.7 g/dL (3.4-5.0); ALKALINE PHOSPHATASE 89 U/L (46-116); ALT (SGPT) 13 U/L (10-68); BILIRUBIN - DIRECT 0.09 mg/dL (0.00-0.30); BILIRUBIN - INDIRECT 0.13 mg/dL (0.00-1.00); BILIRUBIN - TOTAL 0.22 mg/dL (0.2-1.3); CALC OSMOLALITY 275 mosm/kg (275-300); CARBON DIOXIDE 25.4 mmol/L (21.0-32.0); CHLORIDE - SERUM 106 mmol/L (98-107); CREATININE - SERUM 0.4 mg/dL (0.6-1.3); GLUCOSE 80 mg/dL (74-106); POTASSIUM - SERUM 3.8 mmol/L (3.5-5.1); PROTEIN - SERUM 6.3 g/dL (6.4-8.2); SODIUM 140 mmol/L (136-145); UREA NITROGEN 6 mg/dL (7-18); URIC ACID 3.7 mg/dL (2.6-7.2); eGFR NON AFRICAN AMERICAN > 90 mL/min (90-120)
== END | disposition home or self-care (01) ==
LOC: D.LDO 14:07
PROVIDERS: ATTEND Obstetrics & Gynecology
DX: O47.9 False labor, unspecified (principal)

== ENCOUNTER → 2019-01-24 11:13 | Outpatient (CLI) | payer MEDICAID ==
[2017-01-30 05:14] VITALS: BMI 46.6
[~2019-01-24 11:13] MED LIST changes: -PERCOCET 10-321 EAC1 PO
== END | disposition home or self-care (01) ==
LOC: D.LDO 11:13
PROVIDERS: ATTEND Obstetrics & Gynecology
DX: O13.3 Gestational [pregnancy-induced] hypertension without significant proteinuria, third trimester (principal); O24.919 Unspecified diabetes mellitus in pregnancy, unspecified trimester; Z3A.35 35 weeks gestation of pregnancy

== ENCOUNTER → 2019-01-27 09:18 | Outpatient (CLI) | payer MEDICAID ==
[2017-01-30 05:14] VITALS: BMI 46.6
[2019-01-27 10:39] LABS: HEMATOCRIT 31.5 % (36.0-48.0); HEMOGLOBIN 11.1 g/dL (12-16); LYMPHOCYTES 16.5 % (15-50); MCH 31.9 pg (26.0-34.0); MCHC 35.2 g/dL (31.0-37.0); MCV 90.5 fL (80.0-100.0); MEAN PLATELET VOLUME 8.7 fL (7.4-10.4); PLATELET COUNT 200 10x3/uL (130-400); RBC 3.48 10x6/uL (4.00-5.40); RDW 14.3 % (11.5-14.5); WBC 5.6 10x3/uL (4.8-10.8)
[2019-01-27 10:46] LABS: ALBUMIN 2.5 g/dL (3.4-5.0); ALKALINE PHOSPHATASE 90 U/L (46-116); ALT (SGPT) 12 U/L (10-68); BILIRUBIN - DIRECT 0.06 mg/dL (0.00-0.30); BILIRUBIN - INDIRECT 0.14 mg/dL (0.00-1.00); CALC OSMOLALITY 276 mosm/kg (275-300); CALCIUM 8.1 mg/dL (8.5-10.1); CARBON DIOXIDE 21.2 mmol/L (21.0-32.0); CHLORIDE - SERUM 107 mmol/L (98-107); CREATININE - SERUM 0.6 mg/dL (0.6-1.3); POTASSIUM - SERUM 3.3 mmol/L (3.5-5.1); PROTEIN - SERUM 6.3 g/dL (6.4-8.2); SODIUM 139 mmol/L (136-145); UREA NITROGEN 7 mg/dL (7-18); URIC ACID 3.5 mg/dL (2.6-7.2); eGFR NON AFRICAN AMERICAN > 90 mL/min (90-120)
[2019-01-27 10:47] LABS: GLUCOSE 123 mg/dL (74-106)
== END | disposition home or self-care (01) ==
LOC: D.LDO 09:18
PROVIDERS: ATTEND Obstetrics & Gynecology
DX: O47.9 False labor, unspecified (principal)

== ENCOUNTER → 2019-01-30 14:40 | Outpatient (CLI) | payer MEDICAID ==
[2017-01-30 05:14] VITALS: BMI 46.6
== END | disposition home or self-care (01) ==
LOC: D.LDO 14:40
PROVIDERS: ATTEND Obstetrics & Gynecology
DX: O13.3 Gestational [pregnancy-induced] hypertension without significant proteinuria, third trimester (principal); O24.913 Unspecified diabetes mellitus in pregnancy, third trimester; Z3A.36 36 weeks gestation of pregnancy

== ENCOUNTER → 2019-02-05 09:50 | Outpatient (CLI) | payer MEDICAID ==
[2017-01-30 05:14] VITALS: BMI 46.6
[2019-02-05 10:32] LABS: BASOPHILS 0.2 % (0-2); EOSINOPHILS 2.2 % (0-7); HEMATOCRIT 33.2 % (36.0-48.0); HEMOGLOBIN 11.3 g/dL (12-16); IMMATURE GRANULOCYTES 0.9 % (0-5); LYMPHOCYTES 20.1 % (15-50); MCH 30.3 pg (26.0-34.0); MONOCYTES 11.7 % (2-11); NEUTROPHILS 64.9 % (40-80); PLATELET COUNT 167 10x3/uL (130-400); RBC 3.73 10x6/uL (4.00-5.40); RDW 14.2 % (11.5-14.5); WBC 5.8 10x3/uL (4.8-10.8)
[2019-02-05 10:56] LABS: ALBUMIN 2.6 g/dL (3.4-5.0); ALKALINE PHOSPHATASE 101 U/L (46-116); ALT (SGPT) 13 U/L (10-68); BILIRUBIN - TOTAL 0.24 mg/dL (0.2-1.3); CALC OSMOLALITY 272 mosm/kg (275-300); CALCIUM 8.5 mg/dL (8.5-10.1); CARBON DIOXIDE 22.5 mmol/L (21.0-32.0); CHLORIDE - SERUM 106 mmol/L (98-107); CREATININE - SERUM 0.4 mg/dL (0.6-1.3); GLUCOSE 86 mg/dL (74-106); POTASSIUM - SERUM 3.4 mmol/L (3.5-5.1); PROTEIN - SERUM 6.6 g/dL (6.4-8.2); SODIUM 138 mmol/L (136-145); UREA NITROGEN 8 mg/dL (7-18); eGFR NON AFRICAN AMERICAN > 90 mL/min (90-120)
[2019-02-05 10:57] LABS: BILIRUBIN - DIRECT 0.06 mg/dL (0.00-0.30); BILIRUBIN - INDIRECT 0.18 mg/dL (0.00-1.00); URIC ACID 3.9 mg/dL (2.6-7.2)
== END | disposition home or self-care (01) ==
LOC: D.LDO 09:50
PROVIDERS: ATTEND Obstetrics & Gynecology
DX: O24.419 Gestational diabetes mellitus in pregnancy, unspecified control (principal); O16.9 Unspecified maternal hypertension, unspecified trimester

== ENCOUNTER → 2019-02-09 09:17 | Outpatient (CLI) | payer MEDICAID ==
[2017-01-30 05:14] VITALS: BMI 46.6
[~2019-02-09 09:17] MED LIST changes: +PERCOCET 10-321 EAC1 PO
== END | disposition home or self-care (01) ==
LOC: D.LDO 09:17
PROVIDERS: ATTEND Obstetrics & Gynecology
DX: O24.419 Gestational diabetes mellitus in pregnancy, unspecified control (principal); Z3A.37 37 weeks gestation of pregnancy

== ENCOUNTER 2019-02-13 05:37 | Inpatient (IN) | payer MEDICAID ==
[2019-02-13] VITALS (15 sets, daily range): BP systolic 114–143; BP diastolic 70–88; Ht 162.6 cm; Wt 122.0 kg
[~2019-02-13] VITALS: Ht 162.6 cm; Wt 122.0 kg
[~2019-02-13 05:37] MED LIST changes: -PERCOCET 10-321 EAC1 PO
[2019-02-13 07:21] LABS: HEMATOCRIT 32.8 % (36.0-48.0); HEMOGLOBIN 11.2 g/dL (12-16); MCH 30.5 pg (26.0-34.0); MCHC 34.1 g/dL (31.0-37.0); MCV 89.4 fL (80.0-100.0); MEAN PLATELET VOLUME 9.4 fL (7.4-10.4); RBC 3.67 10x6/uL (4.00-5.40)
--- NOTE | 2019-02-13 10:25 | NUR ---
received pt from post repeat c/s by dr. coleman. pt on bed from , to 1274, report received from ayden lloyd rn. pt has bikini line dressing, c/d/i. fundus boggy, massages to firm, moderate rubra lochia, no clots expelled. pericare done with warm wet washcloths. vs stable.
--- NOTE | 2019-02-13 10:35 | NUR ---
pt has han cath in place with 500 ml's light yellow urine noted in han bag. scd's connected to pump. current bag of 20 units pitocin which is infusing at slow rate set on pump at 125 ml/hr. iv site without redness or swelling, old blood noted underneath opsite, iv site cleansed and then retaped securely in place. pt denies all other needs at this time. srup x2, call light and phone within reach. family at bedside.
--- NOTE | 2019-02-13 10:45 | NUR ---
fundus boggy, massages firm, no clots expelled. pericare done with warm wet washcloths, peritowels/chux changed with help from selam covarrubias rn. fundus firm, u/2, small rubra lohcia, no clots. ice pack placed to incision over gown. with towel change, and pericare, and turning for pericare, blood leaked onto dressing on pt's left side. pt cleansed. linens changed. pt denies pain at this time. pt denies sob, nausea, or difficulty breathing. sr up x2, call light and phone within reach.
--- NOTE | 2019-02-13 11:15 | NUR ---
fundus firm, u/2, boggy, but massages firm. small rubra lochia, no clots noted. srup x2, call light and phone within reach.
--- NOTE | 2019-02-13 12:30 | NUR ---
fundus massages firm, u/2, moderate rubra lochia noted, no clots expelled. pericare done with warm wet washcloths. right side of dressing noted to be damp from blood getting on it earlier. bandage removed and replaced with sterile abd pad and pressure dressing with help from eboni maria rn. incision/kenyon c/d/i no redness or bleeding noted from incision. pt denies all other needs. srup x2, call light and phone within reach.
--- NOTE | 2019-02-13 13:50 | NUR ---
pt reports being nauseated. cool washcloths, and emesis bag provided.
--- NOTE | 2019-02-13 13:55 | NUR ---
zofran 4 mg given sivp. pt is sitting up in the bed. vs stable, mhr 82. O2 sat 95% room air. pt denies other needs at this time. srup x2, call light and phone within reach.
[2019-02-13 14:50] LABS: BASOPHILS 0 % (0-2); EOSINOPHILS 0.3 % (0-7); HEMATOCRIT 33.1 % (36.0-48.0); HEMOGLOBIN 11.3 g/dL (12-16); IMMATURE GRANULOCYTES 0.5 % (0-5); LYMPHOCYTES 10.6 % (15-50); MCH 30.7 pg (26.0-34.0); MCHC 34.1 g/dL (31.0-37.0); MCV 89.9 fL (80.0-100.0); MEAN PLATELET VOLUME 9.3 fL (7.4-10.4); MONOCYTES 7.9 % (2-11); NEUTROPHILS 80.7 % (40-80); PLATELET COUNT 154 10x3/uL (130-400); RBC 3.68 10x6/uL (4.00-5.40); RDW 13.9 % (11.5-14.5)
[2019-02-13 14:55] LABS: WBC 11.4 10x3/uL (4.8-10.8)
--- NOTE | 2019-02-13 15:10 | NUR ---
THIS RN TO ROOM TO ASSUME PT CARE. 125ML DARK YELLOW URINE EMPTIED FROM UROMETER. AGOSTO BAG EMPTIED. FF, ML, U/U. SMALL RUBRA LOCHIA, BED TOWELS CHANGED. INCISION DSG C/D/I. NEW ICE PACK TO INCISION. PT DENIES FURTHER NEEDS. LIGHTS IN ROOM DIMMED FOR REST. SRUx2, CL IN REACH. SIG OTHER ON BEDSIDE COUCH. WILL CONT TO MONITOR.
--- NOTE | 2019-02-13 16:35 | NUR ---
to pt's room, pt is sitting up in the bed, holding and . new pitocin 20 units 1000 ml up and infusing on pump at 125 ml/hr. pt denies all other needs at this time. sr up x2, call light and phone within reach. pt's sig other in shower at this time.
--- NOTE | 2019-02-13 18:10 | NUR ---
THIS RN TO ROOM FOR PT CHECK. PT SITTING UP IN BED, VISITING WITH SIG OTHER WHO IS HOLDING ON BEDSIDE COUCH. PT REPORTS GOOD PAIN CONTROL WITH TRAINING ASSISTANT, STATES "I'M NOT EVEN HAVING TO PUSH THE BUTTON THAT MUCH NOW." FF, ML, U/1. SMALL RUBRA LOCHIA, NO CLOTS. PERIPADS CHANGED. ABD DSG IS C/D/I. NEW ICE PACK TO INCISION. FRESH ICE WATER PROVIDED. PT ASKING IF SHE WILL BE ABLE TO GET OOB AT 12 HOUR LUDIN AFTER DELIVERY. WILL NOTIFY MD. PT DENIES FURTHER NEEDS. SRUx2, CL IN REACH.
--- NOTE | 2019-02-13 18:35 | NUR ---
PT CALLS OUT COMPLEX DIRECTOR LIGHT ASKING FOR ASSISTANCE. THIS RN TO ROOM. PT REQUESTS INFANT PLACED INTO [place]TE SHE FEELS DROWSY, AND FOB HAS LEFT ROOM. PLACED IN [place]. INFANT DIAPER NOTED TO BE DAMP WITH SLIGHT BLUE LINE ON INDICATOR. DIAPER CHANGED. SWADDLED AND HAT ON. PT DENIES FURTHER NEEDS. LIGHTS IN ROOM DIMMED FOR REST. LIGHT IN BATHROOM AND DIMMERS LEFT ON FOR VISUALIZING . SRUx2, CL IN REACH. WILL CONT TO MONITOR.
--- NOTE | 2019-02-13 19:29 | NUR ---
SHIFT ASSESSMENT COMPLETED PER FLOWSHEET. VSS. FUNDUS FIRM, MIDLINE AND U2 WITH SMALL AMT RUBRA LOCHIA, NO CLOTS NOTED. BOWEL SOUNDS PRESENT AND ACTIVE X4 QUADRANTS, PT REPORTS THAT SHE ISN'T SURE IF SHE HAS PASSED FLATUS YET. AGOSTO DRAINING TO BEDSIDE DRAINAGE WITH 200 MLS YELLOW URINE PRESENT IN UROMETER. 1+ BLE EDEMA NOTED. LT WRIST PIV INFUSING WITHOUT DIFFICULTY, NO S/S OF INFILTRATION NOTED. LOWER TRANSVERSE ABD INCISION COVERED WITH DRSG, DRSG CLEAN, DRY AND INTACT WITH NO DRAINAGE NOTED. INCENTIVE SPIROMETER DONE WITH RN AT BEDSIDE X5, COUGH AND DEEP BREATHING DONE WITH GOOD EFFORT. PT REPOSITION SELF INDEPENDENTLY UP IN BED. SCD'S ON BLE. INFANT HANDED TO PT FOR BF PER PT REQUEST. PAIN INITIALLY 9/10, FOREIGN LANGUAGE STENOGRAPHER BUTTON USED WITH DECREASE IN PAIN TO 8/10, ABD CRAMPING AND INCISIONAL BURNING AND STINGING. TORADOL GIVEN PER ORDER AND PT REQUEST. PT REPORTS THAT SHE HASN'T BEEN USING FOREIGN LANGUAGE STENOGRAPHER BUTTON BECAUSE SHE GETS DROWSY WHEN USING IT. REQUESTS TO GET OOB OZIEL AND THAT SHE IS UNABLE TO TAKE NORCO D/T IT CAUSING HER TO BE NAUSEATED. WILL CONTACT DR. CURIEL FOR FOLLOW UP ORDERS. ICE WATER PROVIDED. DENIES ADDITIONAL NEEDS AT THIS TIME. BED IN LOW POSITION WITH UPPER SIDE RAILS RAISED X2. CALL LIGHT AND PHONE WITHIN REACH. FOREIGN LANGUAGE STENOGRAPHER BUTTON WITHIN REACH. ENCOURAGED PT TO CONTINUE TO MOVE IN BED AND REPOSITION FREQUENTLY AND S/S OF INFECTION TO REPORT, VERBALIZES UNDERSTANDING AND DENIES NEEDS. WILL CONTINUE TO MONITOR.
--- NOTE | 2019-02-13 20:15 | NUR ---
PAIN REASSESSMENT COMPLETED. 11/07, REPORTS THAT PAIN IS MUCH BETTER SINCE GETTING TORADOL AND THAT SHE HASN'T HAD TO USE FRETTED INSTRUMENT INSPECTOR SINCE RECIEVING TORADOL. INFANT IN ARMS AT THIS TIME. FOB AT BEDSIDE, SUPPORTIVE AND ATTENTIVE TO PT AND NEEDS. BED IN LOW POSITION WITH UPPER SIDE RAILS RAISED X2. CALL LIGHT AND PHONE WITHIN REACH. WILL CONTINUE TO MONITOR.
--- NOTE | 2019-02-13 20:24 | NUR ---
DR. CURIEL CALLED TO FOLLOW UP ON ORDERS REGARDING NORMALIZING PT, REPORTED PT CONCERNS REGARDING NAUSEA R/T NORCO. ORDERS REC'D.
--- NOTE | 2019-02-13 20:48 | NUR ---
PT UPDATED ON POC, VERBALIZES UNDERSTANDING. LT WRIST PIV SL WITH 16 MLS AG EQUIPMENT FIELD SERVICE TECHNICIAN SHOWING USED. 125 MLS PRESENT IN CATHETER. CATH D/C'D. PAIN 5/10, ABD CRAMPING AND INCISIONAL BURNING AND STINGING. PERCOCET 10/325 GIVEN PER ORDER AND PT EDUCATED ON MEDICATION AND POSSIBLE SIDE EFFECTS, VERBALIZES UNDERSTANDING. ICE PACK NOTED TO BE LEAKING, GOWN CHANGED, DRSG REMAINS CLEAN, DRY, AND INTACT. INSTRUCTED NOT TO GET OOB WITHOUT ASSISTANCE, VERBALIZES UNDERSTANDING. FOB REMAINS AT BEDSIDE, SUPPORTIVE AND ATTENTIVE TO PT AND NEEDS. JYOTI BUCKLEY RN AT BEDSIDE AT THIS TIME TO ASSIST PT WITH BF. WILL CONTINUE TO MONITOR.
--- NOTE | 2019-02-13 21:39 | NUR ---
C/O INTERMITTENT NAUSEA. ZOFRAN GIVEN PER ORDER AND PT REQUEST. ASSISTED WITH BF PER PT REQUEST. DENIES ADDITIONAL NEEDS. BED IN LOW POSITION WITH UPPER SIDE RAILS RAISED X2. CALL LIGHT AND PHONE WITHIN REACH. WILL CONTINUE TO MONITOR AND ASSIST PRN.
--- NOTE | 2019-02-13 22:47 | NUR ---
UP TO VOID, AMBULATED TO BR WITH STANDBY ASSIST OF RN, STEADY GAIT NOTED. VOIDED 400 MLS IN HAT. PERICARE DONE PER PT. PANTIES AND PERIPADS PROVIDED. GOWN AND LINENS CHANGED. ORAL CARE PER PT. BACK TO BED. SCD'S ON BLE. RESTING QUIETLY IN OPEN CRIB. SPOUSE REMAINS AT BEDSIDE, SUPPORTIVE AND ATTENTIVE TO PT AND . BED IN LOW POSITION WITH UPPER SIDE RAILS RAISED X2. CALL LIGHT AND PHONE WITHIN REACH. WILL CONTINUE TO MONITOR.
--- NOTE | 2019-02-14 00:54 | NUR ---
C/O ABD CRAMPING AND INCISIONAL PAIN /, NORCO AND MOTRIN GIVEN PER ORDER AND PT REQUEST. ABD BINDER APPLIED. UP TO BR, VOIDED 300 MLS IN HAT. PERICARE PER PT. AMBULATORY IN VARGAS WITH INFANT TO NBN AND BACK TO ROOM. STEADY GAIT NOTED, DENIES DIZZINESS AND LIGHTHEADEDNESS. SCD'S BACK ON BLE. ICE PACK, FAN, AND ICE WATER PROVIDED PER PT REQUEST. DENIES ADDITIONAL NEEDS. BED IN LOW POSITION WITH UPPER SIDE RAILS RAISED X2. CALL LIGHT AND PHONE WITHIN REACH. WILL CONTINUE TO MONITOR.
[2019-02-14 00:56] VITALS: BP 120/66
--- NOTE | 2019-02-14 01:40 | NUR ---
PAIN REASSESSMENT COMPLETED. RESTING QUIETLY WITH EYES CLOSED IN SEMI-FOWLERS POSITION. RESP REGULAR AND UNLABORED, NO S/S OF DISTRESS NOTED. BED IN LOW POSITION WITH UPPER SIDE RAILS RAISED X2. CALL LIGHT AND PHONE WITHIN REACH. WILL CONTINUE TO MONITOR AND ASSIST PRN.
--- NOTE | 2019-02-14 03:02 | NUR ---
RESTING QUIETLY IN SEMI FOWLERS POSITION. RESPIRATIONS REGULAR AND UNLABORED, NO S/S OF DISTRESS NOTED. BED IN LOW POSITION WITH UPPER SIDE RAILS RAISED X2. CALL LIGHT AND PHONE WITHIN REACH. WILL CONTINUE TO MONITOR.
[2019-02-14 05:07] VITALS: BP 116/68
--- NOTE | 2019-02-14 05:07 | NUR ---
VSS. FUNDUS FIRM, MIDLINE AND U2 WITH SMALL AMT RUBRA LOCHIA, NO CLOTS NOTED. PAIN 4/10, ABD SORENESS, CRAMPING AND INCISIONAL BURNING, PERCOCET OFFERED AND DECLINED AT THIS TIME. ICE WATER PROVIDED, DENIES NEEDS. SCD'S ON BLE. FOB RESTING ON COUCH AT BEDSIDE. BED IN LOW POSITION WITH UPPER SIDE RAILS RAISED X2. CALL LIGHT AND PHONE WITHIN REACH. WILL CONTINUE TO MONITOR.
--- NOTE | 2019-02-14 05:50 | NUR ---
C/O ABD CRAMPING AND RLQ ABD SORENESS WITH INCISIONAL BURNING AND STINGING, 7-02/07. PERCOCET AND MOTRIN GIVEN PER ORDER AND PT REQUEST. UP TO BR, VOIDED 800 MLS IN HAT. PERICARE PER PT. BACK TO BED, REFUSES SCD'S AT THIS TIME. REQUEST INFANT BE BROUGHT TO ROOM. DENIES ADDITIONAL NEEDS AT THIS TIME. BED IN LOW POSITION WITH UPPER SIDE RAILS RAISED X2. CALL LIGHT AND PHONE WITHIN REACH. WILL CONTINUE TO MONITOR.
--- NOTE | 2019-02-14 06:10 | NUR ---
DR. HORN AT BEDSIDE. LOWER TRANSVERSE ABD DRSG REMOVED PER MD, INCISION WELL APPROXIMATED WITH LILY INTACT. PT INSTRUCTED ON INCISIONAL CARE, PERIPAD PLACED OVER INCISION. ICE PACK PROVIDED AND PT INSTRUCTED AT AFTER 0830 THIS MORNING ICE WAS NO LONGER RECOMMENDED, VERBALIZES UNDERSTANDING. ICE WATER PROVIDED. DENIES ADDITIONAL NEEDS AT THIS TIME. BED IN LOW POSITION WITH UPPER SIDE RAILS RAISED X2. CALL LIGHT AND PHONE WITHIN REACH. WILL CONTINUE TO MONITOR.
--- NOTE | 2019-02-14 06:28 | NUR ---
LAB AT BEDSIDE.
--- NOTE | 2019-02-14 06:36 | NUR ---
PHLEBO UNABLE TO OBTAIN ORDERED LAB AT THIS TIME FOLLOWING 2 ATTEMPTS, REPORTS THAT SHE IS GOING TO HAVE SOMEONE ELSE COME TO UNIT TO ATTEMPT TO OBTAIN.
--- NOTE | 2019-02-14 06:57 | NUR ---
CAD DEVELOPER TO BEDSIDE TO ATTEMPT TO DRAW LABS.
[2019-02-14 07:29] VITALS: BP 141/65
--- NOTE | 2019-02-14 07:29 | NUR ---
SITTING UP IN BED HOLDING . SHIFT ASSESSMENT COMPLETED. C/O GAS PAIN AND INCISIONAL ACHING 10/08. ENCOURAGED TO AVOID CARBONATED DRINKS, AMBULATE AND POSITIONS FOR COMFORT. NON SMOKER, RH NEG, INFANT RH POSITIVE WILL NEED RHOGAM. GBS POSITIVE, RUBELLA IMMUNE, TDAP LAST RECEIVED 2007 PER [place] IMMUN[facility]ATION RECORDS. . NO CURRENT REQUESTS. PLANS SHOWER THIS AM. FOB IN ROOM, REGULAR DIET AT BEDSIDE. DR HORN VISITED PRIOR TO SHIFT CHANGE. SIDE RAILS UP X 2, CALL LIGHT IN REACH. TO CALL IF ANYTHING IS NEEDED.
[2019-02-14 07:46] LABS: BASOPHILS 0.1 % (0-2); EOSINOPHILS 2.6 % (0-7); HEMATOCRIT 31.5 % (36.0-48.0); HEMOGLOBIN 10.6 g/dL (12-16); IMMATURE GRANULOCYTES 0.5 % (0-5); LYMPHOCYTES 11.7 % (15-50); MCH 30.4 pg (26.0-34.0); MCHC 33.7 g/dL (31.0-37.0); MCV 90.3 fL (80.0-100.0); MEAN PLATELET VOLUME 9.1 fL (7.4-10.4); MONOCYTES 10.3 % (2-11); NEUTROPHILS 74.8 % (40-80); PLATELET COUNT 139 10x3/uL (130-400); RBC 3.49 10x6/uL (4.00-5.40); RDW 14.3 % (11.5-14.5)
[2019-02-14 07:50] LABS: WBC 7.8 10x3/uL (4.8-10.8)
[2019-02-14 08:11] LABS: RAPID PLASMA REAGIN Non Reactive (Non Reactive)
--- NOTE | 2019-02-14 08:35 | NUR ---
MYLINCON 80 MG GIVEN PO FOR RELIEF OF GAS PAIN. DESIRES TO REST AT THIS TIME. INFANT IN NURSERY. FOB ON COUCH, SIDE RAILS UP X 2, CALL LIGHT IN REACH. TO CALL IF ANYTHING IS NEEDED.
[2019-02-14] MEDS ORDERED: PERCOCET 10-321 EAC1 PO (09:30)
[2019-02-14] MEDS ORDERED: IBUPROFEN600 MG PO (09:31)
--- NOTE | 2019-02-14 10:11 | NUR ---
COMPLETED SHOWER WITH ASSISTANCE FROM SPOUSE. COMPLETE LINEN CHANGE DONE. PERCOCET 10 MG GIVEN PO FOR RELIEF OF 7/10 INCISIONAL PAIN. WILL AMBULATE IN VARGAS PRIOR TO LUNCH. DISCUSSED RELIEF MEASURE FOR GAS. CALL LIGHT IN REACH. TO CALL IF ANYTHING IS NEEDED.
--- NOTE | 2019-02-14 11:15 | NUR ---
SAYS SHE STILL HAS GAS PAIN 12/08. ENCOURAGED TO GET OOP AND AMBULATE. OFFERED HOT TEA OR COFFEE. SAYS HER MOTHER WILL BRINGING HER SOME. ON "UNIT" IN NURSERY. PT AMBULATED TO NURSERY, SLIGHT C/O SLIGHT DIZZINESS, CHAIR GIVEN TO PT TO SIT ON WHILE IN NURSERY. TO CALL WHEN READY TO RETURN TO ROOM. VERBALIZED UNDERSTANDING.
--- NOTE | 2019-02-14 12:01 | NUR ---
RETURNED TO ROOM. STILL WITH SLIGHT DIZZINESS AND HASSAN. DESIRES TO SIT IN CHAIR. WAITING ON LUNCH. FOB IN ROOM WITH PT. INFANT REMAINS IN NURSERY.
[2019-02-14 12:04] VITALS: BP 128/79
--- NOTE | 2019-02-14 12:06 | NUR ---
AMBULATED FROM CHAIR TO BATHROOM. VOIDED WITHOUT DIFFICULTY. LOCHIA RUBRA SMALL. OBEY-CARE BY PT WITH WARM WASHCLOTH. CLEAN PADS X 2 ON, ASSISTED WITH REPLACEMENT OF ABDOMINAL BINDER. AMBULATED TO BED AFTER FINISHED. MOTRIN 600 MG GIVEN PO FOR RELIEF OF HASSAN AND INCISIONAL PAIN 12/08. SIDERAILS UP X 2, CALL LIGHT IN REACH, SCD'S PLACED AND WORKING BILATERALLY PER PT REQUESTS. TO CALL IF ANYTHING ELSE IS NEEDED.
--- NOTE | 2019-02-14 12:23 | NUR ---
MYLICON 80 MG GIVEN PO FOR RELIEF OF GAS PAIN. 10/08 INCISION, HASSAN AND GAS PAIN. SAYS HER DIZZINESS IS GONE AWAY. REGULAR DIET AT BEDSIDE. TO CALL IF ANYTHING ELSE IS NEEDED.
--- NOTE | 2019-02-14 14:10 | NUR ---
AMBULATED TO NURSERY TO VISIT INFANT. VISITOR X 1 WITH PT. SAYS SHE IS FEELING BETTER.
--- NOTE | 2019-02-14 14:59 | NUR ---
INFANT IS BEING TRANSFERRED TODAY. PT DESIRES DISCHARGE. LEFT VOICE MAIL FOR DR MOISÉS MD POLICE OFFICER CRIME PREVENTION, TO CALL L&D. WAITING ON RETURN CALL. PATIENT DECLINES TDAP. ANTICIPATE DC.
--- NOTE | 2019-02-14 15:13 | NUR ---
DR CURIEL RETURNED CALL AND ORDERS WERE RECEIVED FOR DC. PT NOTIFIED. RHOGAM GIVEN IM IN RIGHT DELTOID WITHOUT DIFFICULTY. DECLINES TDAP. FAMILY MEMBER WILL EXTRACTIONS TECHNOLOGIST PRESCRIPTION FROM PHARMACY. SALINE LOCK DC'D WITH TIP INTACT. PLANS AMBULATION TO NURSERY PRIOR TO CHANGING CLOTHES. WILL COMPLETE DC TEACHING WHEN RETURNS FROM NURSER. WAS AWARE OF PURPOSE OF RHOGAM INJECTION. VISITORS IN ROOM.
--- NOTE | 2019-02-14 15:53 | NUR ---
DC TEACHING COMPLETED TO INCLUDE POST OP CARE, S&S INFECTION, PP DEPRESSION, /BREAST CARE, DANGER SIGNS, MEDICATION ADMINISTRATION AND FOLLOW-UP. FAMILY WENT TO LEAD ETL DEVELOPER RX. PERCOCET 10 MG GIVEN PO FOR RELIEF OF 7/10 ABDOMINAL/INCISIONAL CRAMPING AND BURNING. GETTING READY TO GET DRESSED. AMBULANCE HERE TO LEAD ETL DEVELOPER . VISITORS IN ROOM.
--- NOTE | 2019-02-14 16:40 | NUR ---
DC'D VIA WHEELCHAIR TO CAR. LEFT WITH AMBULANCE STAFF TO [facility]. HAS DC INSTRUCTIONS. ALL BELONGINGS REMOVED FROM ROOM. FAMILY MEMBER PICKED UP PRESCRIPTIONS FOR PT. FOB DRIVING CAR.
--- NOTE | 2019-03-03 10:58 | OP ---
PATIENT NAME: DEB NARAYANAN MEDICAL RECORD: [id number] :89 LOCATION:[id number] ADMISSION DATE:02/13/19 SURGEON: CHARLES WOO MD DATE OF OPERATION: 02/13/2019 PREOPERATIVE DIAGNOSES: 1. Term intrauterine . 2. Chronic hypertension. 3. Gestational diabetes. 4. Previous section. POSTOPERATIVE DIAGNOSES: 1. Term intrauterine . 2. Chronic hypertension. 3. Gestational diabetes. 4. Previous section. PROCEDURE: A repeat low transverse section. SURGEON: Charles Woo MD ESTIMATED BLOOD LOSS: 1000 cc. INTRAVENOUS FLUIDS: Per anesthesia record. FINDINGS: 1. Viable female , Apgars 9 at 1 and 9 at 5. 2. Placenta delivered manually intact, 3-vessel cord noted. 3. Normal adnexa bilaterally. SPECIMENS: Placenta and cord for gases. ESTIMATED BLOOD LOSS: 1000 cc. COMPLICATIONS: None apparent. PROCEDURE IN DETAIL: The patient was taken to the operating room where regional anesthesia was achieved without difficulty. The patient was then prepped and draped in normal sterile fashion in the dorsal supine position. SCDs were on and functioning normally. A Johnson catheter had been placed and was draining freely. A Pfannenstiel skin incision was made and extended downward with underlying subcutaneous fat to the level of the fascia. The fascia was then excised in the midline using the scalpel and the fascial incision was extended bilaterally using the Walsh scissors. The superior and inferior aspects of the fascial incision were then grasped with Kelly clamps times 2, tented upward, and sharply dissected from the underlying rectus muscle using the Bovie cautery and the Walsh scissors. The rectus muscles were then bluntly in the midline. The peritoneum entered at the superior aspect of the incision using the Metzenbaum scissors. The peritoneal incision was then carefully dissected. Several adhesions were then excised between the anterior surface of the uterus and the anterior abdominal wall/peritoneum. The bladder was identified and a bladder flap was created by excising the anterior leaf of the broad ligament and the lower uterine segment. This was dissected downward. A bladder blade was placed into the pelvis and a low transverse incision was made. This was extended using the Pelosi method. The vertex was then delivered OPERATIVE REPORT [id number] DEB NARAYANAN atraumatically followed by the body. The cord was clamped times 2, cut, and the was handed to the awaiting nursery team. Infant was bulb suctioned upon delivery. Cord was obtained for gases and the placenta was removed manually and intact. A 3-vessel cord was noted. Uterus was then cleared of all clots and debris and vigorously massaged until good uterine tone was noted. The uterine incision was repaired with 0 Vicryl in a running locked fashion times 2 and the posterior cul-de-sac was then thoroughly irrigated. The uterus then replaced into the pelvis. Counts were correct times 2 for needles, sponges, and instruments. The anterior cul-de-sac was then thoroughly irrigated and good hemostasis was noted from the uterine incision. The fascia was repaired with 0 loop PDS times 1 and the skin was repaired with kenyon. TRANSINT:[id number] Voice Confirmation ID: [id number] DOCUMENT ID: [id number] CHARLES WOO MD at 1058 CC: [id number] DICTATION DATE: 02/27/19 1339 LEAD LOADER: 02/27/19 1354 DIS IN 02/14/19 [facility] [address] [place] [address]
== END 2019-02-14 16:40 | disposition home or self-care (01) | DRG 788 ==
LOC: D.LD 05:37
PROVIDERS: ADMIT Obstetrics & Gynecology; ATTEND Obstetrics & Gynecology
PROC: 10D00Z1 Extraction of Products of Conception, Low, Open Approach (ICD-10-PCS; principal; 2019-02-13 07:30)
DX: O99.824 Streptococcus B carrier state complicating childbirth (principal); Z3A.38 38 weeks gestation of pregnancy; Z37.0 Single live birth; O16.4 Unspecified maternal hypertension, complicating childbirth; O24.429 Gestational diabetes mellitus in childbirth, unspecified control

== ENCOUNTER 2020-11-23 21:48 | Observation (INO) | payer OTHER ==
[~2020-11-23] VITALS: Ht 162.6 cm; Wt 125.9 kg
[~2020-11-23 21:48] MED LIST changes: +PERCOCET 10-321 EAC1 PO
[2020-11-23 22:30] VITALS: BP 152/98
[2020-11-23 22:44] LABS: BACTERIA FEW HPF (NONE SEEN); BILIRUBIN NEGATIVE (NEGATIVE); KETONE NEGATIVE (NEGATIVE); NITRITE NEGATIVE (NEGATIVE); SQUAMOUS EPITHELIAL 0-5 HPF (0-4); UROBILINOGEN NORMAL mg/dL (< 2); WHITE CELLS - URINE OCC HPF (0-4)
[2020-11-23 22:52] LABS: UDS - AMPHET NEGATIVE QUAL (NEGATIVE); UDS - BARB NEGATIVE QUAL (NEGATIVE); UDS - BENZO NEGATIVE QUAL (NEGATIVE); UDS - COCAINE NEGATIVE QUAL (NEGATIVE); UDS - OPIATE NEGATIVE QUAL (NEGATIVE); UDS - PCP NEGATIVE QUAL (NEGATIVE); UDS - THC NEGATIVE QUAL (NEGATIVE)
[2020-11-23 22:56] LABS: HCG URINE NEGATIVE (NEGATIVE)
[2020-11-23 23:02] LABS: BASOPHILS 0.3 % (0-2); EOSINOPHILS 0.8 % (0-7); HEMATOCRIT 43.1 % (36.0-48.0); HEMOGLOBIN 14.7 g/dL (12-16); LYMPHOCYTES 14.1 % (15-50); MCH 30.1 pg (26.0-34.0); MCHC 34.2 g/dL (31.0-37.0); MCV 87.8 fL (80.0-100.0); MEAN PLATELET VOLUME 6.8 fL (7.4-10.4); MONOCYTES 10.3 % (2-11); NEUTROPHILS 74.5 % (40-80); RDW 13.1 % (11.5-14.5); WBC 4.9 10x3/uL (4.8-10.8)
[2020-11-23 23:09] LABS: CALC OSMOLALITY 279 mosm/kg (275-300); CALCIUM 8.3 mg/dL (8.5-10.1); CARBON DIOXIDE 24.3 mmol/L (21.0-32.0); CHLORIDE - SERUM 104 mmol/L (98-107); CREATININE - SERUM 0.8 mg/dL (0.6-1.3); POTASSIUM - SERUM 3.6 mmol/L (3.5-5.1); SODIUM 139 mmol/L (136-145); UREA NITROGEN 11 mg/dL (7-18); eGFR NON AFRICAN AMERICAN > 90 mL/min (90-120)
[2020-11-23 23:12] LABS: GLUCOSE 151 mg/dL (74-106); PLATELET COUNT 234 10x3/uL (130-400)
[2020-11-23 23:22] LABS: ALBUMIN 3.9 g/dL (3.4-5.0); ALKALINE PHOSPHATASE 50 U/L (30-120); ALT (SGPT) 84 U/L (10-68); BILIRUBIN - TOTAL 0.38 mg/dL (0.2-1.3); LIPASE 84 U/L (73-393); PRO BNP 64 pg/mL (0-125); PROTEIN - SERUM 7.5 g/dL (6.4-8.2); THYROID STIMULATING HORMONE 1.04 uIU/mL (0.36-3.74)
[2020-11-24] VITALS (9 sets, daily range): BP systolic 131–160; BP diastolic 83–101; Ht 162.6 cm; Wt 125.9 kg
--- NOTE | 2020-11-24 03:42 | NUR ---
RECIEVED REPORT FROM ER. ARRIVED TO FLOOR IN W/C. TRANSFERED SELF TO BED. DENIES ANY NEEDS. ASSESSMENT COMPLETED.
--- NOTE | 2020-11-24 07:47 | NUR ---
PT SITTING UP IN BED. STATES TYLENOL GIVEN ALREADY BY NIGHT NURSE. RR EVEN NONLABORED. ALL NEEDS MET AT THIS TIME. CLWR.
--- NOTE | 2020-11-24 23:45 | NUR ---
REPORT RECEIVED. PT A&O, UP IN BED WITH FAMILY AT BEDSIDE. NO S/S OF DISTRESS OBSERVED. RR EVEN & UNLABORED ON RA. SR 86 ON TELE. IV TO L AC PATENT, SL, SWAB CAPS IN USE. SCDS IN PLACE. BED LOCKED AND LOWERED, CL IN REACH. ASSESSMENT COMPLETE. WILL CONT POC.
[2020-11-25 03:45] VITALS: BP 137/64
[2020-11-25 06:47] LABS: BASOPHILS 0.5 % (0-2); EOSINOPHILS 3.8 % (0-7); HEMATOCRIT 40.7 % (36.0-48.0); HEMOGLOBIN 14.1 g/dL (12-16); LYMPHOCYTES 23.8 % (15-50); MCH 30.4 pg (26.0-34.0); MCHC 34.8 g/dL (31.0-37.0); MCV 87.5 fL (80.0-100.0); MEAN PLATELET VOLUME 7.1 fL (7.4-10.4); MONOCYTES 14.5 % (2-11); NEUTROPHILS 57.4 % (40-80); PLATELET COUNT 230 10x3/uL (130-400); RBC 4.65 10x6/uL (4.00-5.40); RDW 12.8 % (11.5-14.5)
[2020-11-25 07:06] LABS: ALBUMIN 3.8 g/dL (3.4-5.0); ALKALINE PHOSPHATASE 50 U/L (30-120); ALT (SGPT) 91 U/L (10-68); BILIRUBIN - TOTAL 0.45 mg/dL (0.2-1.3); CALC OSMOLALITY 282 mosm/kg (275-300); CALCIUM 8.6 mg/dL (8.5-10.1); CARBON DIOXIDE 25.8 mmol/L (21.0-32.0); CHLORIDE - SERUM 106 mmol/L (98-107); CREATININE - SERUM 0.8 mg/dL (0.6-1.3); GLUCOSE 115 mg/dL (74-106); MAGNESIUM - SERUM 2.1 mg/dL (1.8-2.4); PHOSPHOROUS 2.9 mg/dL (2.5-4.9); POTASSIUM - SERUM 3.1 mmol/L (3.5-5.1); PRO BNP 45 pg/mL (0-125); PROTEIN - SERUM 7.6 g/dL (6.4-8.2); SODIUM 142 mmol/L (136-145); UREA NITROGEN 10 mg/dL (7-18); eGFR NON AFRICAN AMERICAN > 90 mL/min (90-120)
[2020-11-25 07:18] LABS: TROPONIN-I < 0.017 ng/mL (0.000-0.060)
[2020-11-25 07:29] LABS: WBC 3.6 10x3/uL (4.8-10.8)
--- NOTE | 2020-11-25 07:52 | NUR ---
PT SITTING UP IN BED EATING. STATES SHE IS IN PAIN. GAVE TYLENOL. IV CDI, RR EVEN NONLABORED. ALL NEEDS MET AT THIS TIME. CLWR
[2020-11-25 08:06] VITALS: BP 132/86
[2020-11-25] MEDS ORDERED: TOPROL XL25 MG PO (10:04)
--- NOTE | 2020-11-25 11:14 | NUR ---
PT DISCHARGE INSTRUCTIONS GIVEN. STATES ALL UNDERSTANDING. IV TAKEN OUT CDI. TOLD PT TO CALL WHEN READY TO LEAVE AND WILL TAKE DOWN STAIRS VIA WHEELCHAIR.
--- NOTE | 2020-11-25 11:43 | NUR ---
PT DC VIA WHEELCHAIR TO TO ER EXIT. PICKED UP BY FAMILY MEMBER.
== END 2020-11-25 12:47 | disposition home or self-care, planned readmission (81) ==
LOC: D.ER 21:48 → D.M2 11-24 00:54 → OBSVTIME 11-24 00:54 → D.M2 11-24 00:54
PROVIDERS: Family Medicine; ADMIT Emergency Medicine; ATTEND Emergency Medicine
DX: R00.0 Tachycardia, unspecified (principal); I50.9 Heart failure, unspecified; F41.9 Anxiety disorder, unspecified; R42 Dizziness and giddiness; I11.0 Hypertensive heart disease with heart failure